=== PATIENT | male | born 1930 | race Caucasian/White ===

== ENCOUNTER → 2016-11-15 | Outpatient (CLI) | payer BC ==
[~2016-11-15] MED LIST: ACET650T92 PO; ACET650T97 PO; ASPI81TA25 PO; CLTP PO; CMD/25 PO; CMD5 PO; ENAL5TAB83 PO; FURO-85 PO; LEVO75TA5 PO; LUTE20TA PO; MULT-190 PO; MULT-506 PO; POLYSOL4 OP; RIVA1.5T PO; SPIR25TA PO; TRAM-10 PO
[2016-11-15 16:09] LABS: BLOOD UREA NITROGEN 29 mg/dl (7-18); BUN/CREATININE RATIO 22.4 (10-20); CARBON DIOXIDE 26 mmol/L (21-32); CHLORIDE 97 mmol/L (98-107); GLUCOSE 84 mg/dl (70-99); POTASSIUM 4.8 mmol/L (3.5-5.1); SODIUM 132 mmol/L (136-145)
== END | disposition home or self-care (01) ==
LOC: C.LAB 14:43
PROVIDERS: ATTEND Internal Medicine Geriatric Medicine
DX: E03.9 Hypothyroidism, unspecified (principal); E87.1 Hypo-osmolality and hyponatremia; I42.9 Cardiomyopathy, unspecified

== ENCOUNTER → 2017-01-19 | Outpatient (CLI) | payer BC ==
[2017-01-19 13:25] LABS: BASO % 1.5 %; COMPLETE YES; EOS % 4.5 %; HEMATOCRIT 40.6 % (42-52); IG% 0.1 %; LYMPH % 16.7 %; LYMPH ABS # 1.12 K/uL (1.2-3.4); MEAN CELL VOLUME 99.3 fL (80-100); MEAN CORPUSCULAR HGB CONC 35.2 g/dl (32-36); MEAN PLATELET VOLUME 9.2 fL (7.4-10.4); MONO % 12.9 %; NEUT % 64.3 %; PLATELET COUNT 242 K/uL (130-400); RED BLOOD COUNT 4.09 M/uL (4.7-6.1); WHITE BLOOD COUNT 6.72 K/uL (4.8-10.8)
[2017-01-19 14:00] LABS: BLOOD UREA NITROGEN 27 mg/dl (7-18); BUN/CREATININE RATIO 22.8 (10-20); CALCIUM 9.3 mg/dl (8.5-10.1); CARBON DIOXIDE 27 mmol/L (21-32); CHLORIDE 97 mmol/L (98-107); GLUCOSE 41 mg/dl (70-99); POTASSIUM 4.2 mmol/L (3.5-5.1); SODIUM 131 mmol/L (136-145)
== END | disposition home or self-care (01) ==
LOC: C.LABBC 11:58
PROVIDERS: ATTEND Internal Medicine Geriatric Medicine
DX: D64.9 Anemia, unspecified (principal); E87.1 Hypo-osmolality and hyponatremia; E03.9 Hypothyroidism, unspecified

== ENCOUNTER → 2017-01-20 | Outpatient (CLI) | payer BC | END | disposition home or self-care (01) | LOC: C.LAB 11:42 | PROVIDERS: ATTEND Internal Medicine Geriatric Medicine | DX: E16.2 Hypoglycemia, unspecified (principal) ==

== ENCOUNTER → 2017-01-21 | Outpatient (CLI) | payer BC | END | disposition home or self-care (01) | LOC: C.LAB 08:59 | PROVIDERS: ATTEND Internal Medicine Geriatric Medicine | DX: E16.2 Hypoglycemia, unspecified (principal) ==

== ENCOUNTER → 2017-04-27 | Outpatient (CLI) | payer BC ==
[2017-04-27 12:17] LABS: BASO % 1.3 %; BASO ABS # 0.07 K/uL (0-0.2); COMPLETE YES; EOS % 7.8 %; HEMATOCRIT 42.1 % (42-52); IG% 0.2 %; LYMPH % 18.7 %; LYMPH ABS # 0.98 K/uL (1.2-3.4); MEAN CELL VOLUME 101.7 fL (80-100); MEAN CORPUSCULAR HEMOGLOBIN 33.8 pg (25-34); MEAN CORPUSCULAR HGB CONC 33.3 g/dl (32-36); MEAN PLATELET VOLUME 9.3 fL (7.4-10.4); MONO % 10.3 %; NEUT % 61.7 %; PLATELET COUNT 210 K/uL (130-400); RED BLOOD COUNT 4.14 M/uL (4.7-6.1); WHITE BLOOD COUNT 5.24 K/uL (4.8-10.8)
[2017-04-27 12:42] LABS: BLOOD UREA NITROGEN 22 mg/dl (7-18); BUN/CREATININE RATIO 18.3 (10-20); CALCIUM 8.8 mg/dl (8.5-10.1); CARBON DIOXIDE 24 mmol/L (21-32); CHLORIDE 100 mmol/L (98-107); GLUCOSE 84 mg/dl (70-99); POTASSIUM 4.4 mmol/L (3.5-5.1); SODIUM 131 mmol/L (136-145)
== END | disposition home or self-care (01) ==
LOC: C.LAB 11:36
PROVIDERS: ATTEND Internal Medicine Geriatric Medicine
DX: I48.91 Unspecified atrial fibrillation (principal); C61 Malignant neoplasm of prostate; I49.5 Sick sinus syndrome; E87.1 Hypo-osmolality and hyponatremia; E03.9 Hypothyroidism, unspecified; Z79.01 Long term (current) use of anticoagulants

== ENCOUNTER 2017-07-05 15:15 | Inpatient (IN) | payer BC, OTHER ==
[~2017-07-05] VITALS: Ht 182.9 cm; Wt 59.0 kg
[~2017-07-05 15:15] MED LIST changes: -ACET650T97 PO; -FURO-85 PO; -LEVO75TA5 PO; -POLYSOL4 OP; -RIVA1.5T PO; -SPIR25TA PO
[2017-07-05] MEDS ORDERED: SODIUM CHLORIDE 0.9% 1000ML 1,000 ML IV STA (15:44)
[2017-07-05] MEDS ORDERED: OPTIRAY 320 IV PRN (16:00)
[2017-07-05] MEDS ORDERED: POLYSOL4 OP (16:08)
[2017-07-05] MEDS ORDERED: RIVA1.5T PO (16:08)
[2017-07-05] MEDS ORDERED: SPIR25TA PO (16:08)
[2017-07-05] MEDS ORDERED: ACET650T97 PO (16:08)
[2017-07-05] MEDS ORDERED: LEVO75TA5 PO (16:08)
[2017-07-05] MEDS ORDERED: FURO-85 PO (16:08)
[2017-07-05 16:40] LABS: BASO % 0.2 %; BASO ABS # 0.01 K/uL (0-0.2); COMPLETE YES; EOS % 0.9 %; HEMATOCRIT 44.7 % (42-52); IG% 0.3 %; LYMPH % 10.5 %; MEAN CORPUSCULAR HEMOGLOBIN 34.9 pg (25-34); MEAN CORPUSCULAR HGB CONC 34.9 g/dl (32-36); MEAN PLATELET VOLUME 9.5 fL (7.4-10.4); MONO % 9.5 %; NEUT % 78.6 %; PLATELET COUNT 246 K/uL (130-400); RED BLOOD COUNT 4.47 M/uL (4.7-6.1); WHITE BLOOD COUNT 6.66 K/uL (4.8-10.8)
[2017-07-05 17:03] LABS: BUN/CREATININE RATIO 16.5 (10-20); CALCIUM 9.2 mg/dl (8.5-10.1); CREATININE 1.3 mg/dl (0.60-1.40); POTASSIUM 3.2 mmol/L (3.5-5.1)
--- NOTE | 2017-07-05 18:00 | DIAGNOSTIC IMAGING REPORT ---
ABD/PELVIS IV CONTRAST ONLY CT DOSE: 394.35 mGy.cm HISTORY: Pain lower abd pain TECHNIQUE: Multiaxial CT images of the abdomen and pelvis were performed following the use of intravenous contrast. A dose lowering technique was utilized adhering to the principles of ALARA. COMPARISON STUDY: 08/29/2000 FINDINGS: Trace pleural fluid left lung base. Liver enhances uniformly. Stomach is relatively collapsed. Dilatation of the transverse and to a lesser extent a sending colon. Maximum diameter of the transverse colon is 9.3 cm. No significant distention of the distal descending colon. This raises the distinct possibility of a nonvisualized obstructing lesion. No oral contrast was administered. Spleen is unremarkable. Moderate fatty replacement of pancreas. Mild bladder distention. No significant free fluid within the pelvic cul-de-sac. Postoperative changes involving the lumbar spine. IMPRESSION: 1. Considerable distention of the transverse and to lesser extent a sending colon. 2. This raises the possibility of a descending colonic obstructing lesion with colonoscopy recommended. 3. Small left effusion. The above report was generated using voice recognition software. It may contain grammatical, syntax or spelling errors. Electronically signed by: Ryan Gibbs M.D. 07/05/2017 5:59 PM Dictated Date/Time: 07/05/2017 5:54 PM
--- NOTE | 2017-07-05 18:10 | DIAGNOSTIC IMAGING REPORT ---
CT OF THE LUMBAR SPINE CLINICAL HISTORY: Lower back pain. COMPARISON STUDY: Lumbar spine MRI October 13, 2009. FINDINGS: The CT of the abdomen and pelvis will be reported separately. For purposes of numbering on this exam, the L5-S1 disc space is assigned to axial image 684 of 832. There are post surgical findings consistent with a multilevel posterior decompression with bilateral pedicle screw fusion from L2 through L5. L2-L3, L3-L4 and L4-L5 discectomies with interbody spacer placement are noted. There is moderate levoscoliosis of the lumbar spine. No acute lumbar spine fractures identified. Central canal and neural foramen are suboptimally assessed by CT. Paravertebral soft tissues are unremarkable. The hardware is intact. There is multilevel disc space narrowing with osteophytosis and vacuum disc phenomenon. IMPRESSION: 1. No acute lumbar spine fracture or subluxation. 2. Status post posterior decompression with L2-L5 bilateral pedicle screw fusion and multilevel discectomy, as detailed above. 3. Moderate levoscoliosis of the lumbar spine. 4. Suboptimal evaluation of the central canal and neural foramen given CT technique. Electronically signed by: Roque Aguilar M.D. 07/05/2017 6:08 PM Dictated Date/Time: 07/05/2017 5:55 PM
--- NOTE | 2017-07-05 18:34 | History and Physical ---
History & Physical Date & Time of Service: Jul 05, 2017 at 18:28 Chief Complaint: Not Eating/Drinking Possibly Dehydrated Primary Care Physician: Brenton Bokoer M.D. History of Present Illness Source: patient This ia a 87 yo M with PMHx of chronic systolic CHF with EF of 35-40% in Aug 2016, cardiomyopathy, sick sinus syndrome s/p cardiac pacemaker insertion on chronic anticoagulation, prostate carcinoma, CAD, atrial septal aneurysm, hx of TIA/CVA, hypothyroidism, osteoarthritis presenting with low back pain/poor oral intake and found to have large colonic distension of the transverse and descending colon. The patient is a poor historian, and no other family members are present at bedside. He reports having low back pain which is chronic, although this pain seems to be much worse than that. He cannot tell me when this pain started. He has not been eating well or drinking well for several days. Patient has not had a bowel movement in several days, but reports that they're normally soft and formed. He denies any nausea or vomiting. The patient's stomach feels distended and hurts when someone pushes on it. He lives at home with his . Pt has required using his walker for ambulation assistance due to the worsening low back pain. Past Medical/Surgical History Medical Problems: (1) Atrial fibrillation Status: Chronic (2) Bradycardia Status: Chronic (3) Implantation of cardiac pacemaker Status: Resolved chronic systolic CHF with EF of 35-40% in Aug 2016 cardiomyopathy sick sinus syndrome s/p cardiac pacemaker insertion chronic anticoagulation prostate carcinoma CAD atrial septal aneurysm hx of TIA/CVA Hypothyroidism Osteoarthritis Surgical Hx: Dual chamber Medronic pacemaker insertion 2010 Cararact surgery [facility] surgery of head Social History Smoking Status: Former Smoker Smokeless Tobacco Use: No Alcohol Use: none Marital Status: Housing status: lives with family Occupational Status: retired Immunizations History of Influenza Vaccine: N/A History of Tetanus Vaccine?: Yes History of Pneumococcal: Yes History of Hepatitis B Vaccine: No Multi-Drug Resistant Organisms History of MDRO: No Allergies Coded Allergies: No Known Allergies (Verified , `, 07/05/17) Home Medications Scheduled Acetaminophen (Tylenol 8 Hour Arthritis), 650 MG PO BID Aspirin (Aspir-Low), 81 MG PO QAM Furosemide (Lasix), 20 MG PO DAILY Levothyroxine Sodium (Levothyroxine Sodium), 75 MCG PO QAM Ocuvite Preservision (Ocuvite Preservision), 1 TAB PO BID Rivaroxaban (Xarelto), 15 MG PO QAM Spironolactone (Aldactone), 25 MG PO DAILY Scheduled PRN Polyethylene Glycol-Propylene (Systane), 1 DROPS OP UD PRN for Review of Systems Constitutional: No fever, sweats or chills Eyes: No diplopia, no worsening or blurred vision ENT: normal hearing, no trouble swallowing Respiratory: No cough, sputum, dyspnea at rest or on exertion Cardiovascular: No chest pain, tightness or palpitations Abdomen: See HPI. Musculoskeletal: No joint pain, calf pain, +chronic lower leg swelling but none currently Neurologic: +using walker recently due to back pain, No weakness, numbness/ tingling, or balance problems Psychiatric: No anxiety or depression Skin: No rash or itch Physical Exam Vital Signs Date Time Temp Pulse Resp B/P (MAP) Pulse Ox O2 Delivery O2 Flow Rate FiO2 07/05/17 16:13 60 20 129/83 97 Room Air 07/05/17 15:23 36.4 76 20 112/76 95 Room Air General: awake, alert, + mild distress Head: Normocephalic, atraumatic ENT: PERRL, EOMI, + left scleral injection and pustular exudate, + right eye crusting, no pharyngeal exudate, mucous membranes dry, + hard of hearing Chest: Clear to auscultation, on room air, no adventitious breath sounds Cardiac: + pacemaker left upper chest wall, RRR, no murmur, no JVD, normal peripheral pulses, good capillary refill, no peripheral edema Abdominal: Hypoactive bowel sounds with tinkling over mid abdominal distension, +hard, nontender to palpation. Extremities: + Chronic venous stasis changes, no peripheral edema or erythema, calfs nontender to palpation Psych: Normal mood and affect Neuro: AAO x 3, strength intact bilaterally and related 5/5, no motor deficits, speech is clear, no peripheral sensory deficits Diagnostics Laboratory Results Results Past 24 Hours Test 07/05/17 16:10 Range/Units White Blood Count 6.66 4.8-10.8 K/uL Red Blood Count 4.47 4.7-6.1 M/uL Hemoglobin 15.6 14.0-18.0 g/dL Hematocrit 44.7 42-52 % Mean Corpuscular Volume 100.0 80-100 fL Mean Corpuscular Hemoglobin 34.9 25-34 pg Mean Corpuscular Hemoglobin Concent 34.9 32-36 g/dl Platelet Count 246 130-400 K/uL Mean Platelet Volume 9.5 7.4-10.4 fL Neutrophils (%) (Auto) 78.6 % Lymphocytes (%) (Auto) 10.5 % Monocytes (%) (Auto) 9.5 % Eosinophils (%) (Auto) 0.9 % Basophils (%) (Auto) 0.2 % Neutrophils # (Auto) 5.24 1.4-6.5 K/uL Lymphocytes # (Auto) 0.70 1.2-3.4 K/uL Monocytes # (Auto) 0.63 0.11-0.59 K/uL Eosinophils # (Auto) 0.06 0-0.5 K/uL Basophils # (Auto) 0.01 0-0.2 K/uL RDW Standard Deviation 50.0 36.4-46.3 fL RDW Coefficient of Variation 13.7 11.5-14.5 % Immature Granulocyte % (Auto) 0.3 % Immature Granulocyte # (Auto) 0.02 0.00-0.02 K/uL Sodium Level 131 136-145 mmol/L Potassium Level 3.2 3.5-5.1 mmol/L Chloride Level 96 98-107 mmol/L Carbon Dioxide Level 27 21-32 mmol/L Anion Gap 8.0 3-11 mmol/L Blood Urea Nitrogen 22 7-18 mg/dl Creatinine 1.30 0.60-1.40 mg/dl Est Creatinine Clear Calc Drug Dose 31.6 ml/min Estimated GFR () 56.1 Estimated GFR (Non- 48.4 BUN/Creatinine Ratio 16.5 10-20 Random Glucose 107 70-99 mg/dl Calcium Level 9.2 8.5-10.1 mg/dl Total Bilirubin 1.7 0.2-1 mg/dl Direct Bilirubin 0.5 0-0.2 mg/dl Aspartate Amino Transf (AST/SGOT) 29 15-37 U/L Alanine Aminotransferase (ALT/SGPT) 29 12-78 U/L Alkaline Phosphatase 67 45-117 U/L Total Protein 7.1 6.4-8.2 gm/dl Albumin 3.4 3.4-5.0 gm/dl Lipase 272 73-393 U/L Diagnostic Radiology ABD/PELVIS IV CONTRAST ONLY CT DOSE: 394.35 mGy.cm HISTORY: Pain lower abd pain TECHNIQUE: Multiaxial CT images of the abdomen and pelvis were performed following the use of intravenous contrast. A dose lowering technique was utilized adhering to the principles of ALARA. COMPARISON STUDY: 08/29/2000 FINDINGS: Trace pleural fluid left lung base. Liver enhances uniformly. Stomach is relatively collapsed. Dilatation of the transverse and to a lesser extent a sending colon. Maximum diameter of the transverse colon is 9.3 cm. No significant distention of the distal descending colon. This raises the distinct possibility of a nonvisualized obstructing lesion. No oral contrast was administered. Spleen is unremarkable. Moderate fatty replacement of pancreas. Mild bladder distention. No significant free fluid within the pelvic cul-de-sac. Postoperative changes involving the lumbar spine. IMPRESSION: 1. Considerable distention of the transverse and to lesser extent a sending colon. 2. This raises the possibility of a descending colonic obstructing lesion with colonoscopy recommended. 3. Small left effusion. The above report was generated using voice recognition software. It may contain grammatical, syntax or spelling errors. Electronically signed by: Ryan Gibbs M.D. 07/05/2017 5:59 PM Dictated Date/Time: 07/05/2017 5:54 PM The status of this report is Signed. CT OF THE LUMBAR SPINE CLINICAL HISTORY: Lower back pain. COMPARISON STUDY: Lumbar spine MRI October 13, 2009. FINDINGS: The CT of the abdomen and pelvis will be reported separately. For purposes of numbering on this exam, the L5-S1 disc space is assigned to axial image 684 of 832. There are post surgical findings consistent with a multilevel posterior decompression with bilateral pedicle screw fusion from L2 through L5. L2-L3, L3-L4 and L4-L5 discectomies with interbody spacer placement are noted. There is moderate levoscoliosis of the lumbar spine. No acute lumbar spine fractures identified. Central canal and neural foramen are suboptimally assessed by CT. Paravertebral soft tissues are unremarkable. The hardware is intact. There is multilevel disc space narrowing with osteophytosis and vacuum disc phenomenon. IMPRESSION: 1. No acute lumbar spine fracture or subluxation. 2. Status post posterior decompression with L2-L5 bilateral pedicle screw fusion and multilevel discectomy, as detailed above. 3. Moderate levoscoliosis of the lumbar spine. 4. Suboptimal evaluation of the central canal and neural foramen given CT technique. Electronically signed by: Roque Aguilar M.D. 07/05/2017 6:08 PM Dictated Date/Time: 07/05/2017 5:55 PM The status of this report is Signed. Impression Assessment and Plan This ia a 87 yo M with PMHx of chronic systolic CHF with EF of 35-40% in Aug 2016, cardiomyopathy, sick sinus syndrome s/p cardiac pacemaker insertion on chronic anticoagulation, prostate carcinoma, CAD, atrial septal aneurysm, hx of TIA/CVA hypothyroidism, osteoarthritis presenting with poor oral intake and found to have large colonic distension of the transverse and descending colon. Colonic distention of the transverse and descending colon - Admit patient to telemetry - We will order a Dulcolax suppository now to see if this helps to alleviate colonic distention, continue bid prn - GI consulted for possible colonoscopy tomorrow, keep the patient nothing by mouth - Patient received 1 L NSS in the ER, Will start maintenance fluids with NSS at 75 mL/hr x 10 hours. Caution for fluid overload as the patient has CHF with poor EF. Chronic systolic CHF Cardiomyopathy Sick sinus syndrome s/p pacemaker insertion Chronic anticoagulation - Most recent Echo in August 2016 showing LVEF=35-40%, patient follows with Dr. Amos as an outpatient - S/d dual-chamber [employer] pacemaker - We will hold Lasix 20 mg Po daily and spironolactone 25 mg daily for now with IVFs in place. - Continue Xarelto 15 mg QPM - Continue ASA 81 mg every other day Prostate carcinoma - Resolved, Stable Hypothyroidism - Levothyroxine 75 g daily DVT prophylaxis: Xarelto CODE STATUS: DO NOT RESUSCITATE Disposition: Patient from home, lives with , CM to assist with discharge planning Level of Care Telemetry Resuscitation Status DO NOT RESUSCITATE VTE Prophylaxis Risk Level: Very Low Given or contraindicated: Other Anticoagulation, T.E.D. Stockings, SCD's
[2017-07-05 18:57] LABS: URINE APPEARANCE CLEAR (CLEAR); URINE BILIRUBIN NEG (NEG); URINE COLOR YELLOW; URINE EPITHELIAL CELL AUTO 0-5 /lpf (0-5); URINE NITRITE NEG (NEG); URINE PH 6.5 (4.5-7.5); URINE SPECIFIC GRAVITY 1.023 (1.000-1.030); UROBILINOGEN NEG (NEG); ZZURINE CULT IF INDIC CATH NO
[2017-07-05] MEDS ORDERED: BISACODYL 10 MG SUPP PR STA (19:05)
[2017-07-05] MEDS ORDERED: SODIUM CHLORIDE 0.9% 1000ML 1,000 ML IV SCH (19:05)
[2017-07-05] MEDS ORDERED: POTASSIUM CHLR 20 MEQ / WTR 40 MEQ in PREMIXED WATER 100 ML IV STA (19:12)
[2017-07-05] MEDS ORDERED: BISACODYL 10 MG SUPP PR PRN (19:15)
[2017-07-05] MEDS ORDERED: ONDANSETRON INJ 2 MG/ML 2 ML VIAL IV PRN (19:15)
[2017-07-05] MEDS ORDERED: ACETAMINOPHEN 325 MG TAB PO PRN (19:15)
[2017-07-05] MEDS ORDERED: ARTIFICIAL TEARS OP SOLN OP PRN ×2 (19:15)
[2017-07-05 19:17] LABS: MANUAL MICROSCOPIC REQUIRED? NO; REVIEW REQ? NO
--- NOTE | 2017-07-05 20:30 | EMERGENCY ROOM VISIT NOTE ---
History Report prepared by Babak: Dick Ayala Under the Supervision of: Dr. Sammy Sheriff D.O. First contact with patient: 15:26 Chief Complaint: DEHYDRATION Stated Complaint: NOT EATING/DRINKING POSSIBLY DEHYDRATED Nursing Triage Summary: patient to ed via triage, per , patient "has not been acting like himself, not eating or drinking, sleeping all the time. He has chronic back pain but he says its worse." History of Present Illness The patient is an 87 year old male who presents to the Emergency Room with complaints of constant back pain and dehydration for the past 6 days. Additionally, the patient has not been eating or drinking anything and is dehydrated. Per the patients , the patient has had a small amount of soup and fruit juice. The patient states that he gets a little nauseous while he is eating. Per the , the patient has been using a walker recently which is unusual. The patient has chronic back pain, though this pain is more intense than usual. Pt denies headache, change in vision, difficulty swallowing, fevers , abdominal pain, chest pain, shortness of breath, vomiting, diarrhea, pain with urination, and melena. Source of History: patient, spouse/significant other Onset: 6 days ago Position: back, other (global) Quality: other Timing: constant Associated Symptoms: + nausea Review of Systems Pt denies headache, change in vision, fevers, chest pain, shortness of breath, nausea, vomiting, diarrhea, pain with urination, and melena. Past Medical & Surgical Medical Problems: (1) Atrial fibrillation (2) Bradycardia (3) Colonic obstruction (4) Implantation of cardiac pacemaker Social History Smoking Status: Never Smoker Marital Status: Housing Status: lives with friends Current/Historical Medications Scheduled Acetaminophen (Tylenol 8 Hour Arthritis), 650 MG PO BID Aspirin (Aspir-Low), 81 MG PO QAM Furosemide (Lasix), 20 MG PO DAILY Levothyroxine Sodium (Levothyroxine Sodium), 75 MCG PO QAM Ocuvite Preservision (Ocuvite Preservision), 1 TAB PO BID Rivaroxaban (Xarelto), 15 MG PO QAM Spironolactone (Aldactone), 25 MG PO DAILY Scheduled PRN Polyethylene Glycol-Propylene (Systane), 1 DROPS OP UD PRN for Allergies Coded Allergies: No Known Allergies (Verified , `, 07/05/17) Physical Exam Vital Signs Date Time Temp Pulse Resp B/P (MAP) Pulse Ox O2 Delivery O2 Flow Rate FiO2 07/05/17 18:00 87 20 127/73 98 Room Air 07/05/17 17:00 88 20 122/76 98 Room Air 07/05/17 16:13 60 20 129/83 97 Room Air 07/05/17 15:23 36.4 76 20 112/76 95 Room Air Physical Exam GENERAL: Cachectic, malnourished, and heard of hearing. EYE EXAM: normal conjunctiva, PERRL and EOM's intact OROPHARYNX: no exudate, no erythema, lips, buccal mucosa, and tongue normal and mucous membranes are moist NECK: supple, no nuchal rigidity, no adenopathy, non-tender CHEST: Pacemaker in place LUNGS: Clear to auscultation. Normal chest wall mechanics HEART: Mild systolic ejection murmur, S1 normal and S2 normal ABDOMEN: abdomen soft, non-tender, normo-active bowel sounds, no masses, no rebound or guarding. BACK: Back is symmetrical on inspection and there is no deformity, no midline tenderness, no CVA tenderness. SKIN: no rashes and no bruising UPPER EXTREMITIES: upper extremities are grossly normal. LOWER EXTREMITIES: No pitting edema. NEURO EXAM: Normal sensorium, cranial nerves II-XII intact, normal speech, no weakness of arms, no weakness of legs. Sensation intact. Medical Decision & Procedures ER Provider Diagnostic Interpretation: Radiology results as stated below per my review and the radiologist's interpretation: CT OF THE LUMBAR SPINE CLINICAL HISTORY: Lower back pain. COMPARISON STUDY: Lumbar spine MRI October 13, 2009. FINDINGS: The CT of the abdomen and pelvis will be reported separately. For purposes of numbering on this exam, the L5-S1 disc space is assigned to axial image 684 of 832. There are post surgical findings consistent with a multilevel posterior decompression with bilateral pedicle screw fusion from L2 through L5. L2-L3, L3-L4 and L4-L5 discectomies with interbody spacer placement are noted. There is moderate levoscoliosis of the lumbar spine. No acute lumbar spine fractures identified. Central canal and neural foramen are suboptimally assessed by CT. Paravertebral soft tissues are unremarkable. The hardware is intact. There is multilevel disc space narrowing with osteophytosis and vacuum disc phenomenon. IMPRESSION: 1. No acute lumbar spine fracture or subluxation. 2. Status post posterior decompression with L2-L5 bilateral pedicle screw fusion and multilevel discectomy, as detailed above. 3. Moderate levoscoliosis of the lumbar spine. 4. Suboptimal evaluation of the central canal and neural foramen given CT technique. Electronically signed by: Roque Aguilar M.D. 07/05/2017 6:08 PM Dictated Date/Time: 07/05/2017 5:55 PM ABD/PELVIS IV CONTRAST ONLY CT DOSE: 394.35 mGy.cm HISTORY: Pain lower abd pain TECHNIQUE: Multiaxial CT images of the abdomen and pelvis were performed following the use of intravenous contrast. A dose lowering technique was utilized adhering to the principles of ALARA. COMPARISON STUDY: 08/29/2000 FINDINGS: Trace pleural fluid left lung base. Liver enhances uniformly. Stomach is relatively collapsed. Dilatation of the transverse and to a lesser extent a sending colon. Maximum diameter of the transverse colon is 9.3 cm. No significant distention of the distal descending colon. This raises the distinct possibility of a nonvisualized obstructing lesion. No oral contrast was administered. Spleen is unremarkable. Moderate fatty replacement of pancreas. Mild bladder distention. No significant free fluid within the pelvic cul-de-sac. Postoperative changes involving the lumbar spine. IMPRESSION: 1. Considerable distention of the transverse and to lesser extent a sending colon. 2. This raises the possibility of a descending colonic obstructing lesion with colonoscopy recommended. 3. Small left effusion. The above report was generated using voice recognition software. It may contain grammatical, syntax or spelling errors. Electronically signed by: Ryan Gibbs M.D. 07/05/2017 5:59 PM Dictated Date/Time: 07/05/2017 5:54 PM Laboratory Results 07/05/17 16:10 Red Blood Count 4.47, Mean Corpuscular Volume 100.0, Mean Corpuscular Hemoglobin 34.9, Mean Corpuscular Hemoglobin Concent 34.9, Mean Platelet Volume 9.5, Neutrophils (%) (Auto) 78.6, Lymphocytes (%) (Auto) 10.5, Monocytes (%) ( Auto) 9.5, Eosinophils (%) (Auto) 0.9, Basophils (%) (Auto) 0.2, Neutrophils # ( Auto) 5.24, Lymphocytes # (Auto) 0.70, Monocytes # (Auto) 0.63, Eosinophils # ( Auto) 0.06, Basophils # (Auto) 0.01 07/05/17 16:10 Test 07/05/17 16:10 07/05/17 18:30 White Blood Count 6.66 K/uL (4.8-10.8) Red Blood Count 4.47 M/uL (4.7-6.1) Hemoglobin 15.6 g/dL (14.0-18.0) Hematocrit 44.7 % (42-52) Mean Corpuscular Volume 100.0 fL (80-100) Mean Corpuscular Hemoglobin 34.9 pg (25-34) Mean Corpuscular Hemoglobin Concent 34.9 g/dl (32-36) Platelet Count 246 K/uL (130-400) Mean Platelet Volume 9.5 fL (7.4-10.4) Neutrophils (%) (Auto) 78.6 % Lymphocytes (%) (Auto) 10.5 % Monocytes (%) (Auto) 9.5 % Eosinophils (%) (Auto) 0.9 % Basophils (%) (Auto) 0.2 % Neutrophils # (Auto) 5.24 K/uL (1.4-6.5) Lymphocytes # (Auto) 0.70 K/uL (1.2-3.4) Monocytes # (Auto) 0.63 K/uL (0.11-0.59) Eosinophils # (Auto) 0.06 K/uL (0-0.5) Basophils # (Auto) 0.01 K/uL (0-0.2) RDW Standard Deviation 50.0 fL (36.4-46.3) RDW Coefficient of Variation 13.7 % (11.5-14.5) Immature Granulocyte % (Auto) 0.3 % Immature Granulocyte # (Auto) 0.02 K/uL (0.00-0.02) Anion Gap 8.0 mmol/L (3-11) Est Creatinine Clear Calc Drug Dose 31.6 ml/min Estimated GFR () 56.1 Estimated GFR (Non- 48.4 BUN/Creatinine Ratio 16.5 (10-20) Calcium Level 9.2 mg/dl (8.5-10.1) Total Bilirubin 1.7 mg/dl (0.2-1) Direct Bilirubin 0.5 mg/dl (0-0.2) Aspartate Amino Transf (AST/SGOT) 29 U/L (15-37) Alanine Aminotransferase (ALT/SGPT) 29 U/L (12-78) Alkaline Phosphatase 67 U/L (45-117) Total Protein 7.1 gm/dl (6.4-8.2) Albumin 3.4 gm/dl (3.4-5.0) Lipase 272 U/L (73-393) Urine Color YELLOW Urine Appearance CLEAR (CLEAR) Urine pH 6.5 (4.5-7.5) Urine Specific [place] 1.023 (1.000-1.030) Urine Protein NEG (NEG) Urine Glucose (UA) NEG (NEG) Urine Ketones NEG (NEG) Urine Occult Blood NEG (NEG) Urine Nitrite NEG (NEG) Urine Bilirubin NEG (NEG) Urine Urobilinogen NEG (NEG) Urine Leukocyte Esterase NEG (NEG) Urine WBC (Auto) 0 /hpf (0-5) Urine RBC (Auto) 0-4 /hpf (0-4) Urine Hyaline Casts (Auto) 1-5 /lpf (0-5) Urine Epithelial Cells (Auto) 0-5 /lpf (0-5) Urine Bacteria (Auto) NEG (NEG) Laboratory results per my review. Medications Administered Medications (Trade) Dose Ordered Sig/Kimberly Route Start Time Stop Time Status Last Admin Dose Admin Sodium Chloride 1,000 ml @ 999 mls/hr Q1H1M STAT IV 07/05/17 15:44 07/05/17 16:44 DC 07/05/17 16:11 999 MLS/HR ED Course ED COURSE: Vital signs were reviewed and showed normal vitals The patients medical record was reviewed The above diagnostic studies were performed and reviewed. ED treatments and interventions as stated above. 1526: The patient was evaluated in room B3. A complete history and physical examination was performed. 1757: Upon reevaluation, the patient is resting.I discussed my findings with the patient and he understands and agrees with the treatment plan. Based on the patients age, coexisting illnesses, exam and lab findings the decision to treat as an inpatient was made. The patient remained stable while under my care. The patient will be evaluated for further management. 1824: I reviewed the patient's case with Dr. Albarran. He will evaluate the patient for further management. Medical Decision Differential Diagnosis includes but is not limited to dehydration, stroke, anemia, hypoglycemia, hyponatremia, hypernatremia, urinary tract infection, pneumonia, bronchitis, sepsis, gastroenteritis, additional abdominal pathology, metabolic abnormalities and infections. Patient is an 87-year-old male that presents to ER following feeling generally weak, not eating and drinking. Patient was referred in by PCP. CBC was unremarkable. BMP shows a mild hyponatremia and hypo-kalemia. T bili was slightly elevated. Patient was given IV fluids. CT abdomen and pelvis shows large distended colon. They question a possible mass. CT lumbar spine was unremarkable for any acute pathology. Patient has no focal weakness of his legs to suggest cauda equina. With this markedly distention of the colon and have not been able to eat I discussed the case with internal medicine for admission and for evaluation by GI and general surgery. Medication Reconcilliation Current Medication List: was personally reviewed by me Blood Pressure Screening Patient's blood pressure: Normal blood pressure Consults Time Called: 1809 Consulting Physician: Dr. Albarran Returned Call: [phone] I reviewed the patient's case with Dr. Albarran. He will evaluate the patient for further management. Impression Primary Impression: Colonic obstruction Additional Impressions: Failure to thrive Implantation of cardiac pacemaker Hypokalemia Scribe Attestation The scribe's documentation has been prepared under my direction and personally reviewed by me in its entirety. I confirm that the note above accurately reflects all work, treatment, procedures, and medical decision making performed by me. Departure Information Dispostion Being Evaluated By Hospitalist Referrals Brenton Booker M.D. (PCP) Patient Instructions My [facility] Problem Qualifiers Additional Impressions: Failure to thrive Failure to thrive age range: in adult Qualified Codes: R62.7 - Adult failure to thrive
[2017-07-05 20:33] VITALS: BP 120/81; PULSE 61; TEMP 36.8; O2SAT 94; Ht 182.9 cm; Wt 59.0 kg
[2017-07-05] MEDS: POTASSIUM CHLR 10MEQ / WTR IV SCH ×3 (21:07→23:35)
[2017-07-05] MEDS: CIPROFLOXACIN HCL 0.3% OP SOLN 2.5 ML BTL OP SCH (21:50)
[2017-07-06] VITALS (10 sets, daily range): BP systolic 103–136; BP diastolic 68–88; PULSE 58–80; TEMP 36.3–37.2; O2SAT 91–95
[2017-07-06] MEDS: POTASSIUM CHLR 10MEQ / WTR IV SCH (00:52)
[2017-07-06] MEDS: LEVOTHYROXINE 75 MCG TAB PO SCH (05:40)
[2017-07-06 07:45] LABS: BASO % 0.1 %; BASO ABS # 0.01 K/uL (0-0.2); COMPLETE YES; EOS % 0.1 %; HEMATOCRIT 41.5 % (42-52); IG% 0.2 %; LYMPH % 6.1 %; LYMPH ABS # 0.61 K/uL (1.2-3.4); MEAN CELL VOLUME 99.5 fL (80-100); MEAN CORPUSCULAR HEMOGLOBIN 35.3 pg (25-34); MEAN CORPUSCULAR HGB CONC 35.4 g/dl (32-36); MEAN PLATELET VOLUME 9.5 fL (7.4-10.4); MONO % 5.5 %; PLATELET COUNT 204 K/uL (130-400); RED BLOOD COUNT 4.17 M/uL (4.7-6.1); WHITE BLOOD COUNT 10.05 K/uL (4.8-10.8)
[2017-07-06 08:20] LABS: BUN/CREATININE RATIO 18.5 (10-20); CALCIUM 8.7 mg/dl (8.5-10.1); POTASSIUM 3.1 mmol/L (3.5-5.1)
[2017-07-06] MEDS ORDERED: POTASSIUM CHLORIDE 20 MEQ TABCR PO ONE (09:30)
[2017-07-06] MEDS: ASPIRIN 81 MG ECTAB PO SCH (10:16)
[2017-07-06] MEDS: CEROVITE ADV FORMULA TAB PO SCH (10:16)
[2017-07-06] MEDS: CIPROFLOXACIN HCL 0.3% OP SOLN 2.5 ML BTL OP SCH ×2 (10:16→20:58)
[2017-07-06] MEDS: POTASSIUM CHLR 10 MEQ / WTR 10 MEQ in PREMIXED WATER 100 ML IV SCH ×2 (10:17→12:05)
--- NOTE | 2017-07-06 10:19 | DIAGNOSTIC IMAGING REPORT ---
KUB CLINICAL HISTORY: 87 years-old Male presenting with re-eval abd distension. TECHNIQUE: Single supine view of the abdomen was obtained. COMPARISON: CT from 07/05/2017. FINDINGS: Marked gaseous distention of the sigmoid colon. No gas noted in the rectum. Diffuse gaseous distention of colon more proximally. No gross pneumoperitoneum. Splenic arterial calcifications may be present. Scoliosis and posterior lumbar fusion. Suggestion of osteopenia. Lung bases clear. IMPRESSION: 1. 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 This is better demonstrated on recent CT. Surgical consultation warranted. The report will be called/faxed according to standard departmental protocol. Electronically signed by: Meño Frost M.D. 07/06/2017 10:17 AM Dictated Date/Time: 07/06/2017 10:14 AM
--- NOTE | 2017-07-06 10:50 | Clinical Documentation Query ---
SANTO Alonso : CLINICAL DOCUMENTATION QUERY Patient is a 87 year old male presenting with decreased intake and colonic distention of the transverse and descending colon per CT scan. A non-visualized lesion was suggested with recommended colonoscopy. GI consultation pending. In the interim, however, laxatives were attempted. KUB this a.m. 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 This is better demonstrated on recent CT. Surgical consultation warranted". Please clarify as clinically appropriate as there appears to exist a dichotomy in diagnosis and treatment. In your clinical opinion is this patient being managed for: ( ) Volvulus with resultant colonic obstruction ( ) Constipation ( ) Not Agree ( ) Other explanation of clinical findings (Please Explain) ( ) Unable to determine (Please Define) ( ) Need to Discuss The medical record reflects the following clinical findings, treatment, and risk factors. Clinical Indicators: As above Treatment: IVF, serial radiology, laxatives Risk Factors: Age, inactivity, poor intake. Please clarify and document your clinical opinion in the progress notes and discharge summary. Terms such as "probable", "suspected", "likely", "questionable", "possible", or "still to be ruled out" are acceptable. IF IN AGREEMENT, YOU MUST DOCUMENT ABOVE DIAGNOSTIC STATEMENT IN DAILY PROGRESS NOTES AND DISCHARGE SUMMARY. This document is not part of the patient's record. Thank You, Hang Fang, MARIA ESTHER [phone]
[2017-07-06] MEDS ORDERED: HYDROmorphone INJ 0.5 MG/0.5 ML SYR IV PRN (12:15)
--- NOTE | 2017-07-06 13:17 | Gastrointestinal Consultation ---
Gastrointestinal Consultation Date of Consultation: Jul 06, 2017 Attending Physician: Hung Craig Consulting Physician: Gio Ortiz Reason for Consultation: Colonic obstruction, eval for possible colonoscopy History of Present Illness Patient is a 87 year old male who presented to ED w symptoms of lower back, abd pain, poor PO intake. He is currently confused, unable to provide ROS. History obtain from over the phone and chart review. At baseline he was alert, oriented, ambulatory with walker. Pt has issues w constipation, at home usually takes Savioke probiotics and generic stool softeners. said for the last 5 days, he's been c/o abd pain, back pain, also noticed him to not have BM for several days. he started to not eat/drink much. Upon eval in ED, he was noted to have abdominal distension, tender to palpation. Labs showed no leukocytosis, or anemia. UA normal. CMP showed hyponatremia 133, hypokalemia 3.1 , LFTs normal except mild Tbili elevation of 1.7. He had CT abd/pelvis w IV contrast only w findings of: Trace pleural fluid left lung base. Liver enhances uniformly. Stomach is relatively collapsed. Dilatation of the transverse and to a lesser extent ascending colon. Maximum diameter of the transverse colon is 9.3 cm. No significant distention of the distal descending colon. This raises the distinct possibility of a nonvisualized obstructing lesion. No oral contrast was administered. Spleen is unremarkable. Moderate fatty replacement of pancreas. Mild bladder distention. No significant free fluid within the pelvic cul-de-sac. Postoperative changes involving the lumbar spine. IMPRESSION: 1. Considerable distention of the transverse and to lesser extent ascending colon. 2. This raises the possibility of a descending colonic obstructing lesion with colonoscopy recommended. 3. Small left effusion. 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 Did have colonoscopy in [address] Oliveira which showed diverticulosis, and non specific colitis. Social History Smoking Status: Former Smoker Marital Status: Housing Status: lives with friends Occupation Status: retired Allergies Coded Allergies: No Known Allergies (Verified , `, 07/05/17) Current Medications Home Meds and Scripts Medications Dose Route/Sig Max Daily Dose Days Date Category Systane (Polyethylene Glycol-Propylene) 1 Tomeka Tomeka 1 Drops OP UD PRN 07/05/17 Reported Tylenol 8 Hour Arthritis (Acetaminophen) 650 Mg Tab 650 Mg PO BID 07/05/17 Reported Levothyroxine Sodium 75 Mcg Tab 75 Mcg PO QAM 07/05/17 Reported Aldactone (Spironolactone) 25 Mg Tab 25 Mg PO DAILY 07/05/17 Reported Lasix (Furosemide) 20 Mg Tab 20 Mg PO DAILY 07/05/17 Reported Xarelto (Rivaroxaban) 15 Mg Tab 15 Mg PO QAM 07/05/17 Reported Aspir-Low (Aspirin) 81 Mg Tab 81 Mg PO QAM 30 07/06/13 Rx Ocuvite Preservision (Multivitamins/Minerals) 1 Tab Tab 1 Tab PO BID 03/17/10 Reported Review of Systems Constitutional: + see HPI (unable to obtain given pt's mental status) Physical Exam Date Time Temp Pulse Resp B/P (MAP) Pulse Ox O2 Delivery O2 Flow Rate FiO2 07/06/17 08:00 Room Air 07/06/17 07:29 36.3 69 16 126/82 (97) 92 Room Air 07/06/17 05:09 36.7 72 18 136/82 (100) 95 Room Air 07/06/17 00:20 Room Air 07/06/17 00:06 36.5 58 16 134/87 (103) 95 Room Air 07/05/17 20:33 36.8 61 20 120/81 94 Room Air 07/05/17 19:57 60 20 126/73 98 07/05/17 18:00 87 20 127/73 98 Room Air 07/05/17 17:00 88 20 122/76 98 Room Air 07/05/17 16:13 60 20 129/83 97 Room Air 07/05/17 15:23 36.4 76 20 112/76 95 Room Air General Appearance: no apparent distress Respiratory/Chest: no respiratory distress, no accessory muscle use, + decreased breath sounds Cardiovascular: regular rate, rhythm, no gallop, no murmur Abdomen: non tender, + distended Extremities: normal inspection, no pedal edema, no calf tenderness Neurologic/Psych: + disoriented Skin: normal color, no jaundice, no rash Laboratory Results Last 24 Hours Test 07/05/17 16:10 07/05/17 18:30 07/06/17 07:06 White Blood Count 6.66 K/uL 10.05 K/uL Red Blood Count 4.47 M/uL 4.17 M/uL Hemoglobin 15.6 g/dL 14.7 g/dL Hematocrit 44.7 % 41.5 % Mean Corpuscular Volume 100.0 fL 99.5 fL Mean Corpuscular Hemoglobin 34.9 pg 35.3 pg Mean Corpuscular Hemoglobin Concent 34.9 g/dl 35.4 g/dl Platelet Count 246 K/uL 204 K/uL Mean Platelet Volume 9.5 fL 9.5 fL Neutrophils (%) (Auto) 78.6 % 88.0 % Lymphocytes (%) (Auto) 10.5 % 6.1 % Monocytes (%) (Auto) 9.5 % 5.5 % Eosinophils (%) (Auto) 0.9 % 0.1 % Basophils (%) (Auto) 0.2 % 0.1 % Neutrophils # (Auto) 5.24 K/uL 8.85 K/uL Lymphocytes # (Auto) 0.70 K/uL 0.61 K/uL Monocytes # (Auto) 0.63 K/uL 0.55 K/uL Eosinophils # (Auto) 0.06 K/uL 0.01 K/uL Basophils # (Auto) 0.01 K/uL 0.01 K/uL RDW Standard Deviation 50.0 fL 50.0 fL RDW Coefficient of Variation 13.7 % 13.8 % Immature Granulocyte % (Auto) 0.3 % 0.2 % Immature Granulocyte # (Auto) 0.02 K/uL 0.02 K/uL Sodium Level 131 mmol/L 133 mmol/L Potassium Level 3.2 mmol/L 3.1 mmol/L Chloride Level 96 mmol/L 99 mmol/L Carbon Dioxide Level 27 mmol/L 23 mmol/L Anion Gap 8.0 mmol/L 11.0 mmol/L Blood Urea Nitrogen 22 mg/dl 19 mg/dl Creatinine 1.30 mg/dl 1.00 mg/dl Est Creatinine Clear Calc Drug Dose 31.6 ml/min 42.9 ml/min Estimated GFR () 56.1 77.0 Estimated GFR (Non- 48.4 66.4 BUN/Creatinine Ratio 16.5 18.5 Random Glucose 107 mg/dl 93 mg/dl Calcium Level 9.2 mg/dl 8.7 mg/dl Total Bilirubin 1.7 mg/dl Direct Bilirubin 0.5 mg/dl Aspartate Amino Transf (AST/SGOT) 29 U/L Alanine Aminotransferase (ALT/SGPT) 29 U/L Alkaline Phosphatase 67 U/L Total Protein 7.1 gm/dl Albumin 3.4 gm/dl Lipase 272 U/L Urine Color YELLOW Urine Appearance CLEAR Urine pH 6.5 Urine Specific [place] 1.023 Urine Protein NEG Urine Glucose (UA) NEG Urine Ketones NEG Urine Occult Blood NEG Urine Nitrite NEG Urine Bilirubin NEG Urine Urobilinogen NEG Urine Leukocyte Esterase NEG Urine WBC (Auto) 0 /hpf Urine RBC (Auto) 0-4 /hpf Urine Hyaline Casts (Auto) 1-5 /lpf Urine Epithelial Cells (Auto) 0-5 /lpf Urine Bacteria (Auto) NEG Magnesium Level 2.1 mg/dl Impression Patient is a 87 year old male presented to ED w several days of abd/low back pain, poor po intake, found to have colonic distension mostly on ascending and transverse colon areas (max diameter in transverse colon 9.3 cm) ? descending colon obstructing lesion. Currently confused, unable to provide much history. Plan - Keep NPO - KUB this AM -> showed persistent colonic distension w suspected sigmoid volvulus. - Discussed plan of care with pt's who deferred this to her son (Kris: ). Family prefers conservative management unless invasive procedures including colonoscopy is going to be life saving. -> upon finding of sigmoid volvulus on KUB, colonoscopic decompression is recommended. I have discussed this in length w pt's family including , dght and son. They are made aware of benefits & risk of colonoscopy decompression attempt vs conservative measures such as bedside rectal tube placement and enemas which also has risk of unsuccessful symptoms or volvulus resolution. Family is agreeable with colonoscopy intervention. Will order Fleets enema x 2 prior to colonoscopy. I saw and evaluated the patient. He was brought into the hospital with a history of discomfort and altered mental status. Imaging seems to indicate a sigmoid volvulus. We will pursue a urgent colonic decompression today with placement of a decompression tube. I discussed the risks of the procedure to include bleeding, infection, perforation and discomfort with the patient's family. Physical exam Mild distress Diffuse epigastric tenderness Impression: Patient with imaging suggestive of a sigmoid volvulus. We will proceed with urgent colonic decompression. He will need to be seen by general surgery to determine if sigmoid colectomy should be offered.
[2017-07-06] MEDS ORDERED: SOD PHOSPHATE/SOD BIPHOSPHATE ENEMA 132 ML BTL PR ONE (13:30)
--- NOTE | 2017-07-06 14:30 | Hospitalist Progress Note ---
Hospitalist Progress Note Date of Service Jul 06, 2017. (Mery Wade ., PA-C) Subjective Pt evaluation today including: conversation w/ patient, conversation w/ family ( and daughter at bedside ), physical exam, lab review, review of studies, review of inpatient medication list Voiding: pineda catheter in place Patient admits to abdominal/back pain. Currently NPO. ?Mild cognitive impairment- per /daughter, at baseline mentation Patient denies any fever, chills, sweats, lightheadedness, dizziness, vision changes, CP, palpitations, edema, SOB, wheezing, cough, nausea, vomiting, diarrhea, urinary symptoms, melena, numbness/tingling, weakness, anxiety/ depression, active bleeding, or new skin discoloration/changes. Per , issues with abdominal pain due to constipation; usually resolved with BM. Had BM prior to admission with no relief in symptoms. Also, could not longer eat/drink. (Mery Wade ., PA-C) Medications Current Inpatient Medications Medications (Trade) Dose Ordered Sig/Kimberly Route Start Time Stop Time Status Last Admin Dose Admin Ioversol (Optiray 320) 111 ml UD PRN IV 07/05/17 16:00 07/09/17 15:59 Acetaminophen (Tylenol Tab) 650 mg Q4H PRN PO 07/05/17 19:15 08/04/17 19:14 Ondansetron HCl (Zofran Inj) 4 mg Q6H PRN IV 07/05/17 19:15 08/04/17 19:14 Bisacodyl (Dulcolax Supp) 10 mg BID PRN OK 07/05/17 19:15 08/04/17 19:14 Ciprofloxacin HCl (Ciprofloxacin 0.3% Op Soln) 2 drops BID OP 07/05/17 21:00 07/15/17 20:59 07/06/17 10:16 2 DROPS Aspirin (Ecotrin Tab) 81 mg QAM PO 07/06/17 09:00 08/05/17 08:59 07/06/17 10:16 81 MG Levothyroxine Sodium (Synthroid Tab) 75 mcg DAILYBB PO 07/06/17 06:30 08/05/17 06:59 07/06/17 05:40 75 MCG Multivitamins/ Minerals (Multivitamin W/ Minerals Tab) 1 tab DAILY PO 07/06/17 09:00 08/05/17 08:59 07/06/17 10:16 1 TAB Rivaroxaban (Xarelto Tab) 15 mg QDD PO 07/06/17 17:00 08/05/17 17:59 Artificial Tears (Artificial Tears) 1 drops UD PRN OP 07/05/17 19:15 08/04/17 19:14 Hydromorphone HCl (Dilaudid Inj) 0.25 mg Q4H PRN IV 07/06/17 12:15 07/20/17 12:14 (Mery Wade PA-C) Objective Vital Signs Date Time Temp Pulse Resp B/P (MAP) Pulse Ox O2 Delivery O2 Flow Rate FiO2 07/06/17 12:18 Room Air 07/06/17 11:21 36.9 65 16 129/88 (102) 91 Room Air 07/06/17 08:00 Room Air 07/06/17 07:29 36.3 69 16 126/82 (97) 92 Room Air 07/06/17 05:09 36.7 72 18 136/82 (100) 95 Room Air 07/06/17 00:20 Room Air 07/06/17 00:06 36.5 58 16 134/87 (103) 95 Room Air 07/05/17 20:33 36.8 61 20 120/81 94 Room Air 07/05/17 19:57 60 20 126/73 98 07/05/17 18:00 87 20 127/73 98 Room Air 07/05/17 17:00 88 20 122/76 98 Room Air 07/05/17 16:13 60 20 129/83 97 Room Air 07/05/17 15:23 36.4 76 20 112/76 95 Room Air (Mery Wade PA-C) Physical Exam General Appearance: no apparent distress, + thin Eyes: PERRL ENT: + pertinent finding (hard of hearing ) Neck: supple Respiratory/Chest: lungs clear, no respiratory distress, no accessory muscle use Cardiovascular: regular rate, rhythm Abdomen: + abnormal bowel sounds (hypoactive), + distended, + tenderness Extremities: no pedal edema, no calf tenderness Neurologic/Psychiatric: alert, normal mood/affect Skin: normal color, warm/dry, no rash (Murarik, Mery ., PA-C) Laboratory Results Last 24 Hours Test 07/05/17 16:10 07/05/17 18:30 07/06/17 07:06 White Blood Count 6.66 K/uL 10.05 K/uL Red Blood Count 4.47 M/uL 4.17 M/uL Hemoglobin 15.6 g/dL 14.7 g/dL Hematocrit 44.7 % 41.5 % Mean Corpuscular Volume 100.0 fL 99.5 fL Mean Corpuscular Hemoglobin 34.9 pg 35.3 pg Mean Corpuscular Hemoglobin Concent 34.9 g/dl 35.4 g/dl Platelet Count 246 K/uL 204 K/uL Mean Platelet Volume 9.5 fL 9.5 fL Neutrophils (%) (Auto) 78.6 % 88.0 % Lymphocytes (%) (Auto) 10.5 % 6.1 % Monocytes (%) (Auto) 9.5 % 5.5 % Eosinophils (%) (Auto) 0.9 % 0.1 % Basophils (%) (Auto) 0.2 % 0.1 % Neutrophils # (Auto) 5.24 K/uL 8.85 K/uL Lymphocytes # (Auto) 0.70 K/uL 0.61 K/uL Monocytes # (Auto) 0.63 K/uL 0.55 K/uL Eosinophils # (Auto) 0.06 K/uL 0.01 K/uL Basophils # (Auto) 0.01 K/uL 0.01 K/uL RDW Standard Deviation 50.0 fL 50.0 fL RDW Coefficient of Variation 13.7 % 13.8 % Immature Granulocyte % (Auto) 0.3 % 0.2 % Immature Granulocyte # (Auto) 0.02 K/uL 0.02 K/uL Sodium Level 131 mmol/L 133 mmol/L Potassium Level 3.2 mmol/L 3.1 mmol/L Chloride Level 96 mmol/L 99 mmol/L Carbon Dioxide Level 27 mmol/L 23 mmol/L Anion Gap 8.0 mmol/L 11.0 mmol/L Blood Urea Nitrogen 22 mg/dl 19 mg/dl Creatinine 1.30 mg/dl 1.00 mg/dl Est Creatinine Clear Calc Drug Dose 31.6 ml/min 42.9 ml/min Estimated GFR () 56.1 77.0 Estimated GFR (Non- 48.4 66.4 BUN/Creatinine Ratio 16.5 18.5 Random Glucose 107 mg/dl 93 mg/dl Calcium Level 9.2 mg/dl 8.7 mg/dl Total Bilirubin 1.7 mg/dl Direct Bilirubin 0.5 mg/dl Aspartate Amino Transf (AST/SGOT) 29 U/L Alanine Aminotransferase (ALT/SGPT) 29 U/L Alkaline Phosphatase 67 U/L Total Protein 7.1 gm/dl Albumin 3.4 gm/dl Lipase 272 U/L Urine Color YELLOW Urine Appearance CLEAR Urine pH 6.5 Urine Specific [place] 1.023 Urine Protein NEG Urine Glucose (UA) NEG Urine Ketones NEG Urine Occult Blood NEG Urine Nitrite NEG Urine Bilirubin NEG Urine Urobilinogen NEG Urine Leukocyte Esterase NEG Urine WBC (Auto) 0 /hpf Urine RBC (Auto) 0-4 /hpf Urine Hyaline Casts (Auto) 1-5 /lpf Urine Epithelial Cells (Auto) 0-5 /lpf Urine Bacteria (Auto) NEG Magnesium Level 2.1 mg/dl (Mery Wade, SHAYNA) Assessment and Plan This ia a 87 yo M with PMHx of chronic systolic CHF with EF of 35-40% in Aug 2016, cardiomyopathy, sick sinus syndrome s/p cardiac pacemaker insertion on chronic anticoagulation, prostate carcinoma, CAD, atrial septal aneurysm, hx of TIA/CVA hypothyroidism, osteoarthritis presenting with poor oral intake and found to have large colonic distension of the transverse and descending colon. Colonic distention of the transverse and descending colon secondary to sigmoid volvulus: - Admit patient to telemetry - GI consulted, appreciate recommendations -- Planning for colonoscopy today- pretreat w/ fleet enema x2 - General Surgery consulted, appreciate recommendations - IV Dilaudid PRN for pain management - IVF Hypokalemia: Treated w/ PO and IV KCL supplement. Follow K level and replace PRN Chronic systolic CHF, cardiomyopathy, sick sinus syndrome s/p pacemaker insertion, chronic anticoagulation- follows w/ Dr. Amos: - Most recent Echo in August 2016 showing LVEF=35-40% - Lasix 20 mg Po daily and spironolactone 25 mg daily held due to IVF - Continue Xarelto 15 mg QPM, ASA 81 mg every other day Prostate carcinoma- STABLE Hypothyroidism: Levothyroxine 75 g daily DVT prophylaxis: Xarelto CODE STATUS: DO NOT RESUSCITATE Disposition: Patient from home, lives with - CM and PT/OT consulted (Mery Wade ., PATiffanieC) Attending Attestation: Pt seen/examined, chart reviewed, care plan d/w BETITO Wade. I agree w/ the arnold components of her documentation. Pt sleepy during the visit. No emesis. Family reports abdomen looks more distended. Family having hard time deciding about plan of care & treatment. Ultimately decided to proceed w colonoscopy. VSS no fever gen - NAD but sleepy neck - no JVD lying flat heart - RRR lungs - CTA b/l abd - marked distension, BS+ but diminished with occasional high tinkling, mildly tender throughout ext - no edema K 3.1 Na 133 A/P: 1. sigmoid volvulus - after much discussion by family they elected to proceed forward with decompressive colonoscopy by Dr. Ortiz. 2. hypokalemia - replace. 3. hyponatremia - likely due to volume depletion - gentle fluids. 4. chronic systolic CHF - compensated. Luis GLYNN MD (Hung Glynn MD)
[2017-07-06] MEDS ORDERED: MINERAL OIL 30 ML UDC ONE (15:13)
[2017-07-06] MEDS ORDERED: EpHEDrine SULFATE INJ 50 MG/ML AMP IV PRN (15:15)
[2017-07-06] MEDS ORDERED: ATROPINE SULFATE 0.1 MG/ML 5ML SYR IV PRN (15:15)
[2017-07-06] MEDS ORDERED: LIDOCAINE HCL 2% 2 ML VIAL (20MG/ML) ONE (15:23)
[2017-07-06] MEDS ORDERED: FENTANYL CITRATE INJ 50 MCG/1 ML 2 ML VIAL ONE (15:23)
[2017-07-06] MEDS ORDERED: PROPOFOL IV EMULSION 10 MG/ML 20 ML VIAL IV ONE (15:23)
--- NOTE | 2017-07-06 15:54 | GI REPORT ---
Procedure Date: 07/06/2017 3:23 PM Procedure: Colonoscopy Indications: Therapeutic procedure Medicines: Monitored Anesthesia Care Complications: No immediate complications. Estimated blood loss: Minimal. Estimated Blood Loss: Estimated blood loss was minimal. Procedure: Pre-Anesthesia Assessment: - Prior to the procedure, a History and Physical was performed, and patient medications, allergies and sensitivities were reviewed. The patient's tolerance of previous anesthesia was reviewed. - The risks and benefits of the procedure and the sedation options and risks were discussed with the patient. All questions were answered and informed consent was obtained. - Patient identification and proposed procedure were verified prior to the procedure by the physician, the nurse and the skein winding operator. The procedure was verified in the procedure room. - Pre-procedure physical examination revealed no contraindications to sedation. - ASA Grade Assessment: IV - A patient with severe systemic disease that is a constant threat to life. - After reviewing the risks and benefits, the patient was deemed in satisfactory condition to undergo the procedure. - The anesthesia plan was to use monitored anesthesia care (MAC). - Immediately prior to administration of medications, the patient was re-assessed for adequacy to receive sedatives. - The heart rate, respiratory rate, oxygen saturations, blood pressure, adequacy of pulmonary ventilation, and response to care were monitored throughout the procedure. - The physical status of the patient was re-assessed after the procedure. After I obtained informed consent, the scope was passed under direct vision. Throughout the procedure, the patient's blood pressure, pulse, and oxygen saturations were monitored continuously. The On-site loaner was introduced through the anus and advanced to the ascending colon for evaluation. This was the intended extent. The colonoscopy was somewhat difficult due to inadequate bowel prep. Successful completion of the procedure was aided by lavage. The patient tolerated the procedure well. The quality of the bowel preparation was poor. Findings: The digital rectal exam findings include non-thrombosed external hemorrhoids. Pertinent negatives include normal sphincter tone. An area of moderately congested and dusky appearing mucosa was found in the recto-sigmoid colon. The colon (entire examined portion) was moderately tortuous. Decompression of the volvulus was attempted, and partial decompression was achieved. Following the maneuver, a decompression tube was placed to maintain the decompression. Estimated blood loss was minimal. Stool was aspirated for C diff and culture. The exam was otherwise without abnormality. Impression: - Preparation of the colon was poor. - Non-thrombosed external hemorrhoids found on digital rectal exam. - Congested mucosa in the recto-sigmoid colon. - Tortuous colon. - The examination was otherwise normal. - No specimens collected. Recommendation: - Return patient to [facility] for ongoing care. - KUB to check placement of decompresson tube - golyte 100 ml per rectal tube every 1 hour (complete 4 L container) - Broad spectrum antibiotics - Stool sent for C diff / Culture - KUB in am - Further managment per General surgery Gio Ortiz D.O. Gio Ortiz, 07/06/2017 3:54:05 PM This report has been signed electronically. Note Initiated On: 07/06/2017 3:23 PM I attest to the content of the Intraoperative Record and orders documented therein, exceptions below
--- NOTE | 2017-07-06 15:56 | Progress Note ---
Progress Note Date of Service Jul 06, 2017. Progress Note The patient underwent urgent colonoscopy today for decompression and treatment of a suspected sigmoid volvulus. Findings Large amount of stool seen in colon Dilation of the colon noted Decompression tube placed Impression: Patient with a suspected sigmoid volvulus treated with colonic decompression and rectal tube placement today. At this point maximal endoscopic therapy has been provided. Should the patient's volvulus recur he will need urgent surgical intervention. Recommendations KUB today and daily Colyte via rectal tube Surgical consultation to determine timing of sigmoid colectomy
[2017-07-06] MEDS ORDERED: LAVAGE SOLUTION 4000ML PO SCH (16:00)
--- NOTE | 2017-07-06 16:01 | Anesthesiology Progress Note ---
Anesthesia Post Op Note Date & Time Jul 06, 2017 at 16:01 Vital Signs Pain Intensity: 0.0 Vital Signs Past 12 Hours Date Time Temp Pulse Resp B/P (MAP) Pulse Ox O2 Delivery O2 Flow Rate FiO2 07/06/17 15:54 79 16 101/67 (78) 92 Room Air 07/06/17 14:56 37.2 16 116/82 95 Room Air 07/06/17 14:45 37.2 61 16 116/82 (93) 95 Room Air 07/06/17 12:18 Room Air 07/06/17 11:21 36.9 65 16 129/88 (102) 91 Room Air 07/06/17 08:00 Room Air 07/06/17 07:29 36.3 69 16 126/82 (97) 92 Room Air 07/06/17 05:09 36.7 72 18 136/82 (100) 95 Room Air Notes Mental Status: alert / awake / arousable, participated in evaluation Pt Amnestic to Procedure: Yes Nausea / Vomiting: adequately controlled Pain: adequately controlled Airway Patency, RR, SpO2: stable & adequate BP & HR: stable & adequate Hydration State: stable & adequate Anesthetic Complications: no major complications apparent
--- NOTE | 2017-07-06 16:40 | DIAGNOSTIC IMAGING REPORT ---
KUB CLINICAL HISTORY: check placement of rectal tube, s/p decompression COMPARISON STUDY: 07/06/2017 FINDINGS: Postsurgical changes are again evident within the lumbar spine. There is a mildly severe lumbar levoscoliosis. There has been interval insertion of a rectal tube. The tip projects over the proximal descending colon. There is diminishing gaseous distention of the colon. IMPRESSION: 1. Interval insertion of a rectal tube, the tip of which projects over the proximal aspect of the descending colon 2. Decreasing gaseous distention of the colon Electronically signed by: Ronnie Beckford M.D. 07/06/2017 4:39 PM Dictated Date/Time: 07/06/2017 4:37 PM
[2017-07-06] MEDS ORDERED: RIVAROXABAN TAB 15 MG TAB PO SCH (17:00)
--- NOTE | 2017-07-06 17:11 | Surgery Consultation ---
Consultation Date of Consultation: Jul 06, 2017. Attending Physician: Hung Glynn MD History of Present Illness pt is a 87 year old male who was admitted to hospital for colon obstruction, possible sigmoid colon volvulus, pt had colonoscopy with colon decompression, pt denies any significant abdominal pain, some nausea, no vomiting, I saw pt before colonoscopy, pt's and daughter at bed side, pt teddy fever, no diarrhea, last BM about 3 days ago. Past Medical/Surgical History Medical Problems: (1) Failure to thrive Status: Acute (2) Hypokalemia Status: Acute Social History Smoking Status: Former Smoker Smokeless Tobacco Use: No Alcohol Use: none Drug Use: none Marital Status: Housing Status: lives with friends Occupation Status: retired Allergies Coded Allergies: No Known Allergies (Verified , `, 07/05/17) Home Medications Scheduled Acetaminophen (Tylenol 8 Hour Arthritis), 650 MG PO BID Aspirin (Aspir-Low), 81 MG PO QAM Furosemide (Lasix), 20 MG PO DAILY Levothyroxine Sodium (Levothyroxine Sodium), 75 MCG PO QAM Ocuvite Preservision (Ocuvite Preservision), 1 TAB PO BID Rivaroxaban (Xarelto), 15 MG PO QAM Spironolactone (Aldactone), 25 MG PO DAILY Scheduled PRN Polyethylene Glycol-Propylene (Systane), 1 DROPS OP UD PRN for Current Inpatient Medications Current Inpatient Medications Medications (Trade) Dose Ordered Sig/Kimberly Route Start Time Stop Time Status Last Admin Dose Admin Ioversol (Optiray 320) 111 ml UD PRN IV 07/05/17 16:00 07/09/17 15:59 Acetaminophen (Tylenol Tab) 650 mg Q4H PRN PO 07/05/17 19:15 08/04/17 19:14 Ondansetron HCl (Zofran Inj) 4 mg Q6H PRN IV 07/05/17 19:15 08/04/17 19:14 Bisacodyl (Dulcolax Supp) 10 mg BID PRN [place] 07/05/17 19:15 08/04/17 19:14 Ciprofloxacin HCl (Ciprofloxacin 0.3% Op Soln) 2 drops BID OP 07/05/17 21:00 07/15/17 20:59 07/06/17 10:16 2 DROPS Aspirin (Ecotrin Tab) 81 mg QAM PO 07/06/17 09:00 08/05/17 08:59 07/06/17 10:16 81 MG Levothyroxine Sodium (Synthroid Tab) 75 mcg DAILYBB PO 07/06/17 06:30 08/05/17 06:59 07/06/17 05:40 75 MCG Multivitamins/ Minerals (Multivitamin W/ Minerals Tab) 1 tab DAILY PO 07/06/17 09:00 08/05/17 08:59 07/06/17 10:16 1 TAB Rivaroxaban (Xarelto Tab) 15 mg QDD PO 07/06/17 17:00 08/05/17 17:59 Artificial Tears (Artificial Tears) 1 drops UD PRN OP 07/05/17 19:15 08/04/17 19:14 Hydromorphone HCl (Dilaudid Inj) 0.25 mg Q4H PRN IV 07/06/17 12:15 07/20/17 12:14 Ephedrine Sulfate (EpHEDrine SULFATE INJ) 5 mg Q5M PRN IV 07/06/17 15:15 07/06/17 20:00 Atropine Sulfate (Atropine Sulfate 0.1MG/Ml Inj) 0.5 mg Q1M PRN IV 07/06/17 15:15 07/06/17 20:00 Polyethylene Glycol/ Electrolytes (Golytely Soln) 0.4 dose 1600 PO 07/06/17 16:00 07/08/17 08:00 Review of Systems Constitutional: No fever, No chills, No sweats, No weight loss, No weakness, No fatigue, No problem reported ENT: No hearing loss, No unusual epistaxis, No nasal symptoms, No sore throat, No tinnitus, No dental problems, No trouble swallowing, No problem reported Respiratory: No cough, No sputum, No wheezing, No shortness of breath, No dyspnea on exertion, No dyspnea at rest, No hemoptysis, No problem reported Cardiovascular: + problem reported (A-fib, cardiac EF 35-40%, CHF), No chest pain, No orthopnea, No PND, No edema, No claudication, No palpitations Abdomen: + nausea Musculoskeletal: No joint pain, No muscle pain, No swelling, No calf pain, No problem reported Neurologic: No memory loss, No paralysis, No weakness, No numbness/tingling, No vertigo, No balance problems, No problem reported Psychiatric: No depression symptoms, No anhedonism, No anxiety, No insomnia, No substance abuse, No problem reported Endocrine: + problem reported (hypothyriodism), No fatigue, No excessive thirst , No excessive urination Hematologic / Lymphatic: No abnormal bleeding/bruising, No clotting problems, No swollen lymph nodes, No night sweats, No problem reported Physical Exam Date Time Temp Pulse Resp B/P (MAP) Pulse Ox O2 Delivery O2 Flow Rate FiO2 07/06/17 16:26 67 16 109/73 (85) 94 Room Air 07/06/17 16:11 67 16 118/75 (89) 94 Room Air 07/06/17 15:54 79 16 101/67 (78) 92 Room Air 07/06/17 14:56 37.2 16 116/82 95 Room Air 07/06/17 14:45 37.2 61 16 116/82 (93) 95 Room Air 07/06/17 12:18 Room Air 07/06/17 11:21 36.9 65 16 129/88 (102) 91 Room Air 07/06/17 08:00 Room Air 07/06/17 07:29 36.3 69 16 126/82 (97) 92 Room Air 07/06/17 05:09 36.7 72 18 136/82 (100) 95 Room Air 07/06/17 00:20 Room Air 07/06/17 00:06 36.5 58 16 134/87 (103) 95 Room Air 07/05/17 20:33 36.8 61 20 120/81 94 Room Air 07/05/17 19:57 60 20 126/73 98 07/05/17 18:00 87 20 127/73 98 Room Air General Appearance: WD/WN, no apparent distress Head: normocephalic Eyes: normal inspection ENT: normal ENT inspection Neck: supple, no JVD Respiratory/Chest: chest non-tender, lungs clear, normal breath sounds Cardiovascular: regular rate, rhythm, no edema, no gallop, no JVD Abdomen/GI: normal bowel sounds, non tender, soft, + distended Extremities/Musculoskelatal: normal inspection, no calf tenderness, normal capillary refill Neurologic/Psych: no motor/sensory deficits, alert, normal mood/affect Laboratory Results Last 24 Hours Test 07/05/17 18:30 07/06/17 07:06 Urine Color YELLOW Urine Appearance CLEAR Urine pH 6.5 Urine Specific [place] 1.023 Urine Protein NEG Urine Glucose (UA) NEG Urine Ketones NEG Urine Occult Blood NEG Urine Nitrite NEG Urine Bilirubin NEG Urine Urobilinogen NEG Urine Leukocyte Esterase NEG Urine WBC (Auto) 0 /hpf Urine RBC (Auto) 0-4 /hpf Urine Hyaline Casts (Auto) 1-5 /lpf Urine Epithelial Cells (Auto) 0-5 /lpf Urine Bacteria (Auto) NEG White Blood Count 10.05 K/uL Red Blood Count 4.17 M/uL Hemoglobin 14.7 g/dL Hematocrit 41.5 % Mean Corpuscular Volume 99.5 fL Mean Corpuscular Hemoglobin 35.3 pg Mean Corpuscular Hemoglobin Concent 35.4 g/dl Platelet Count 204 K/uL Mean Platelet Volume 9.5 fL Neutrophils (%) (Auto) 88.0 % Lymphocytes (%) (Auto) 6.1 % Monocytes (%) (Auto) 5.5 % Eosinophils (%) (Auto) 0.1 % Basophils (%) (Auto) 0.1 % Neutrophils # (Auto) 8.85 K/uL Lymphocytes # (Auto) 0.61 K/uL Monocytes # (Auto) 0.55 K/uL Eosinophils # (Auto) 0.01 K/uL Basophils # (Auto) 0.01 K/uL RDW Standard Deviation 50.0 fL RDW Coefficient of Variation 13.8 % Immature Granulocyte % (Auto) 0.2 % Immature Granulocyte # (Auto) 0.02 K/uL Sodium Level 133 mmol/L Potassium Level 3.1 mmol/L Chloride Level 99 mmol/L Carbon Dioxide Level 23 mmol/L Anion Gap 11.0 mmol/L Blood Urea Nitrogen 19 mg/dl Creatinine 1.00 mg/dl Est Creatinine Clear Calc Drug Dose 42.9 ml/min Estimated GFR () 77.0 Estimated GFR (Non- 66.4 BUN/Creatinine Ratio 18.5 Random Glucose 93 mg/dl Calcium Level 8.7 mg/dl Magnesium Level 2.1 mg/dl Assessment & Plan Assessment, pt is a 87 year old male who presents with colon obstruction possible sigmoid volvulus, IMP colon obstruction possible sigmoid volvulus, Plan, pt had colonoscopy with colon decompression, continue conservative treatment, base pt is high risk for surgical intervention, no surgical indication now, will Follow up repeat labs in am, Thanks,
[2017-07-07] VITALS (8 sets, daily range): BP systolic 107–134; BP diastolic 61–86; PULSE 59–75; TEMP 36.3–36.8; O2SAT 90–95
[2017-07-07] MEDS: LEVOTHYROXINE 75 MCG TAB PO SCH (06:10)
[2017-07-07 06:37] LABS: BASO % 0.1 %; BASO ABS # 0.01 K/uL (0-0.2); COMPLETE YES; EOS % 0.6 %; HEMATOCRIT 40.1 % (42-52); IG% 0.2 %; LYMPH % 8.6 %; LYMPH ABS # 0.82 K/uL (1.2-3.4); MEAN CORPUSCULAR HEMOGLOBIN 34.3 pg (25-34); MEAN CORPUSCULAR HGB CONC 33.9 g/dl (32-36); MEAN PLATELET VOLUME 9.4 fL (7.4-10.4); MONO % 8.1 %; NEUT % 82.4 %; PLATELET COUNT 190 K/uL (130-400); RED BLOOD COUNT 3.97 M/uL (4.7-6.1); WHITE BLOOD COUNT 9.49 K/uL (4.8-10.8)
[2017-07-07 07:21] LABS: BUN/CREATININE RATIO 22.5 (10-20); CREATININE 0.99 mg/dl (0.60-1.40); POTASSIUM 3.7 mmol/L (3.5-5.1)
--- NOTE | 2017-07-07 08:24 | DIAGNOSTIC IMAGING REPORT ---
KUB CLINICAL HISTORY: Reevaluate colonic distention. COMPARISON STUDY: KUB July 06, 2017 at 4:28 PM. FINDINGS: Rectal tube is in place. Tip projects over the mid descending colon. Colonic distention has improved. There is persistent mild residual colonic distention. No dilated loops of small bowel are identified. Lumbar fusion and multilevel discectomy is incidentally noted. IMPRESSION: 1. Interval improvement in colonic distention. Mild residual gaseous distention of the colon. 2. Rectal tube in place with tip projecting over the mid descending colon. Electronically signed by: Roque Aguilar M.D. 07/07/2017 8:23 AM Dictated Date/Time: 07/07/2017 8:20 AM
[2017-07-07] MEDS: CEROVITE ADV FORMULA TAB PO SCH (09:00)
[2017-07-07] MEDS: ASPIRIN 81 MG ECTAB PO SCH (09:00)
--- NOTE | 2017-07-07 10:07 | Gastroenterology Progress Note ---
Progress Note Date of Service: Jul 07, 2017 Subjective Pt evaluation today including: conversation w/ patient, physical exam, chart review, lab review, review of studies, review of inpatient medication list Pt appears restless this AM, still only oriented to self and place but unaware of situation which brought him into the hospital. Unable to obtain ROS. RN report had total of 800ml Golytely flushed into rectal tube but only 100ml came out. KUB this AM showed improved colonic distension, rectal tube tip at mid descending colon Review of Systems Constitutional: + see HPI (Unable to obtain ROS as pt is confused. ) Medications Current Inpatient Medications Medications (Trade) Dose Ordered Sig/Kimberly Route Start Time Stop Time Status Last Admin Dose Admin Ioversol (Optiray 320) 111 ml UD PRN IV 07/05/17 16:00 07/09/17 15:59 Acetaminophen (Tylenol Tab) 650 mg Q4H PRN PO 07/05/17 19:15 08/04/17 19:14 Ondansetron HCl (Zofran Inj) 4 mg Q6H PRN IV 07/05/17 19:15 08/04/17 19:14 Bisacodyl (Dulcolax Supp) 10 mg BID PRN WI 07/05/17 19:15 08/04/17 19:14 Ciprofloxacin HCl (Ciprofloxacin 0.3% Op Soln) 2 drops BID OP 07/05/17 21:00 07/15/17 20:59 07/06/17 20:58 2 DROPS Aspirin (Ecotrin Tab) 81 mg QAM PO 07/06/17 09:00 08/05/17 08:59 07/06/17 10:16 81 MG Levothyroxine Sodium (Synthroid Tab) 75 mcg DAILYBB PO 07/06/17 06:30 08/05/17 06:59 07/07/17 06:10 75 MCG Multivitamins/ Minerals (Multivitamin W/ Minerals Tab) 1 tab DAILY PO 07/06/17 09:00 08/05/17 08:59 07/06/17 10:16 1 TAB Rivaroxaban (Xarelto Tab) 15 mg QDD PO 07/06/17 17:00 08/05/17 17:59 Future Hold 07/06/17 18:02 15 MG Artificial Tears (Artificial Tears) 1 drops UD PRN OP 07/05/17 19:15 08/04/17 19:14 Hydromorphone HCl (Dilaudid Inj) 0.25 mg Q4H PRN IV 07/06/17 12:15 07/20/17 12:14 07/07/17 00:57 0.25 MG Polyethylene Glycol/ Electrolytes (Golytely Soln) 0.4 dose 1600 PO 07/06/17 16:00 07/08/17 08:00 07/06/17 17:52 0.4 DOSE Potassium Chloride/Sodium Chloride 1,000 ml @ 75 mls/hr [id number] IV 07/07/17 09:00 08/06/17 08:59 Objective Vital Signs Date Time Temp Pulse Resp B/P (MAP) Pulse Ox O2 Delivery O2 Flow Rate FiO2 07/07/17 08:00 Room Air 07/07/17 07:35 36.6 65 16 121/69 (86) 90 Room Air 07/07/17 04:00 95 Nasal Cannula 2.0 07/07/17 03:51 36.8 59 16 107/61 (76) 95 Nasal Cannula 2.0 07/07/17 00:00 92 Room Air 07/06/17 23:42 36.5 80 18 103/68 (80) 92 Room Air 07/06/17 20:08 36.7 70 18 105/68 (80) 91 Room Air 07/06/17 20:00 Room Air 07/06/17 18:00 75 16 116/82 (93) 95 Room Air 07/06/17 17:30 36.6 69 18 109/72 (84) 94 Room Air 07/06/17 16:50 36.5 67 18 119/81 (94) 94 Room Air 07/06/17 16:26 67 16 109/73 (85) 94 Room Air 07/06/17 16:11 67 16 118/75 (89) 94 Room Air 07/06/17 16:00 Room Air 07/06/17 15:54 79 16 101/67 (78) 92 Room Air 07/06/17 14:56 37.2 16 116/82 95 Room Air 07/06/17 14:45 37.2 61 16 116/82 (93) 95 Room Air 07/06/17 12:18 Room Air 07/06/17 11:21 36.9 65 16 129/88 (102) 91 Room Air Physical Exam General Appearance: + mild distress (appears restless and confused) Neck: supple, no JVD, trachea midline Respiratory/Chest: no respiratory distress, no accessory muscle use, + decreased breath sounds Cardiovascular: regular rate, rhythm, no gallop, no murmur Abdomen: non tender, soft, + abnormal bowel sounds (hypoactive) Extremities: normal inspection, no pedal edema, no calf tenderness Neurologic/Psych: + disoriented (only oriented to self and place; appears restless) Laboratory Results Last 24 Hours Test 07/07/17 06:18 White Blood Count 9.49 K/uL Red Blood Count 3.97 M/uL Hemoglobin 13.6 g/dL Hematocrit 40.1 % Mean Corpuscular Volume 101.0 fL Mean Corpuscular Hemoglobin 34.3 pg Mean Corpuscular Hemoglobin Concent 33.9 g/dl Platelet Count 190 K/uL Mean Platelet Volume 9.4 fL Neutrophils (%) (Auto) 82.4 % Lymphocytes (%) (Auto) 8.6 % Monocytes (%) (Auto) 8.1 % Eosinophils (%) (Auto) 0.6 % Basophils (%) (Auto) 0.1 % Neutrophils # (Auto) 7.81 K/uL Lymphocytes # (Auto) 0.82 K/uL Monocytes # (Auto) 0.77 K/uL Eosinophils # (Auto) 0.06 K/uL Basophils # (Auto) 0.01 K/uL RDW Standard Deviation 51.3 fL RDW Coefficient of Variation 13.8 % Immature Granulocyte % (Auto) 0.2 % Immature Granulocyte # (Auto) 0.02 K/uL Sodium Level 138 mmol/L Potassium Level 3.7 mmol/L Chloride Level 102 mmol/L Carbon Dioxide Level 25 mmol/L Anion Gap 11.0 mmol/L Blood Urea Nitrogen 22 mg/dl Creatinine 0.99 mg/dl Est Creatinine Clear Calc Drug Dose 46.1 ml/min Estimated GFR () 77.9 Estimated GFR (Non- 67.2 BUN/Creatinine Ratio 22.5 Random Glucose 90 mg/dl Calcium Level 9.0 mg/dl Assessment and Plan Patient is a 87 year old male presented to ED w several days of abd/low back pain, poor po intake, found to have colonic distension mostly on ascending and transverse colon areas (max diameter in transverse colon 9.3 cm) ? descending colon obstructing lesion. Currently confused, unable to provide much history. KUB yesterday suspicious for sigmoid volvulus. He ultimately underwent colonoscopy decompression w rectal tube placement. Repeat KUB last evening and this AM showed improved colonic distension. His abd exam showed soft abd, non tender when palpated today. Rectal tube in place, but only minimal outpt despite hourly flushes w GoLytely. Plans - Keep NPO , IVF resuscitation. - Reduce Golytely flushed per rectal tube to every 4 hrs. - Would recommend transfer to tertiary care center where Colorectal Surgery is available in the possible event that rectal tube will fall off and he'll likely not benefit from a repeat colonic decompression via colonoscopy and if General Surgery is not planning on any surgical intervention such as sigmoid colectomy here. I saw and evaluated the patient. I again had a long discussion with the patient , his and daughter. Given the sigmoid volvulus I would suggest referral to a center with colorectal surgery support. I would suggest that the rectal tube be maintained with 100 mL of Colyte every 4-6 hours. Please call with any additional questions or concerns, we will sign off as the patient will likely be transferred.
[2017-07-07] MEDS: NSS + 20MEQ KCL 1000ML 1,000 ML IV SCH ×2 (10:12→22:24)
[2017-07-07] MEDS: CIPROFLOXACIN HCL 0.3% OP SOLN 2.5 ML BTL OP SCH ×2 (10:13→20:13)
--- NOTE | 2017-07-07 11:40 | Surgery Progress Note ---
Surgery Progress Note Date of Service Jul 07, 2017. Subjective + feeling well pt feels better, pt denies abdominal pain, no nausea, no vomiting, no fever, passed BM and gas. Objective Vital Signs: Date Time Temp Pulse Resp B/P (MAP) Pulse Ox O2 Delivery O2 Flow Rate FiO2 07/07/17 08:00 Room Air 07/07/17 07:35 36.6 65 16 121/69 (86) 90 Room Air 07/07/17 04:00 95 Nasal Cannula 2.0 07/07/17 03:51 36.8 59 16 107/61 (76) 95 Nasal Cannula 2.0 07/07/17 00:00 92 Room Air 07/06/17 23:42 36.5 80 18 103/68 (80) 92 Room Air 07/06/17 20:08 36.7 70 18 105/68 (80) 91 Room Air 07/06/17 20:00 Room Air 07/06/17 18:00 75 16 116/82 (93) 95 Room Air 07/06/17 17:30 36.6 69 18 109/72 (84) 94 Room Air 07/06/17 16:50 36.5 67 18 119/81 (94) 94 Room Air 07/06/17 16:26 67 16 109/73 (85) 94 Room Air 07/06/17 16:11 67 16 118/75 (89) 94 Room Air 07/06/17 16:00 Room Air 07/06/17 15:54 79 16 101/67 (78) 92 Room Air 07/06/17 14:56 37.2 16 116/82 95 Room Air 07/06/17 14:45 37.2 61 16 116/82 (93) 95 Room Air 07/06/17 12:18 Room Air General Appearance: WD/WN Head: normocephalic Neck: supple, no JVD Respiratory/Chest: chest non-tender, lungs clear, normal breath sounds Cardiovascular: no JVD, no murmur Abdomen: normal bowel sounds, non tender, non distended, soft Extremities: normal range of motion, non-tender, normal inspection Laboratory Results: Results Past 24 Hours Test 07/07/17 06:18 Range/Units White Blood Count 9.49 4.8-10.8 K/uL Red Blood Count 3.97 4.7-6.1 M/uL Hemoglobin 13.6 14.0-18.0 g/dL Hematocrit 40.1 42-52 % Mean Corpuscular Volume 101.0 80-100 fL Mean Corpuscular Hemoglobin 34.3 25-34 pg Mean Corpuscular Hemoglobin Concent 33.9 32-36 g/dl Platelet Count 190 130-400 K/uL Mean Platelet Volume 9.4 7.4-10.4 fL Neutrophils (%) (Auto) 82.4 % Lymphocytes (%) (Auto) 8.6 % Monocytes (%) (Auto) 8.1 % Eosinophils (%) (Auto) 0.6 % Basophils (%) (Auto) 0.1 % Neutrophils # (Auto) 7.81 1.4-6.5 K/uL Lymphocytes # (Auto) 0.82 1.2-3.4 K/uL Monocytes # (Auto) 0.77 0.11-0.59 K/uL Eosinophils # (Auto) 0.06 0-0.5 K/uL Basophils # (Auto) 0.01 0-0.2 K/uL RDW Standard Deviation 51.3 36.4-46.3 fL RDW Coefficient of Variation 13.8 11.5-14.5 % Immature Granulocyte % (Auto) 0.2 % Immature Granulocyte # (Auto) 0.02 0.00-0.02 K/uL Sodium Level 138 136-145 mmol/L Potassium Level 3.7 3.5-5.1 mmol/L Chloride Level 102 98-107 mmol/L Carbon Dioxide Level 25 21-32 mmol/L Anion Gap 11.0 3-11 mmol/L Blood Urea Nitrogen 22 7-18 mg/dl Creatinine 0.99 0.60-1.40 mg/dl Est Creatinine Clear Calc Drug Dose 46.1 ml/min Estimated GFR () 77.9 Estimated GFR (Non- 67.2 BUN/Creatinine Ratio 22.5 10-20 Random Glucose 90 70-99 mg/dl Calcium Level 9.0 8.5-10.1 mg/dl Microbiology Results 07/06/17 C.difficile Toxin B Gene (PCR) - Final, Complete No C. difficile toxin B gene detected 07/06/17 Shiga Toxin Test, Received Pending 07/06/17 Stool Culture, Received Pending Assessment & Plan IMP: S/P colonoscopy , colon decompression for sigmoid volvulus. pt is doing better, GI doctor recommend to do sigmoid colectomy, pt is high risks for surgery, if pt needs surgery , pt should transfer to higher level medical center, D/W pt's and daughter who want to transfer to higher level care. no emergent surgery indication now, Dr Cox will F/U this pt over weekend
[2017-07-07] MEDS: LAVAGE SOLUTION 4000ML PR SCH ×4 (12:00→23:56)
--- NOTE | 2017-07-07 14:41 | Hospitalist Progress Note ---
Hospitalist Progress Note Date of Service Jul 07, 2017. (Mery Wade ., PATiffanieC) Subjective Pt evaluation today including: conversation w/ patient, conversation w/ family (daughter at bedside ), physical exam, lab review, review of studies, review of inpatient medication list Voiding: pineda catheter in place Patient NPO. Voices no abdominal complaints. +chronic back pain. Per daughter, confusion has improved since this AM. ROS cannot be obtained secondary to mental status/hard of hearing (hearing aids not in). (Mery Wade ., GIANNAC) Medications Current Inpatient Medications Medications (Trade) Dose Ordered Sig/Kimberly Route Start Time Stop Time Status Last Admin Dose Admin Ioversol (Optiray 320) 111 ml UD PRN IV 07/05/17 16:00 07/09/17 15:59 Acetaminophen (Tylenol Tab) 650 mg Q4H PRN PO 07/05/17 19:15 08/04/17 19:14 Ondansetron HCl (Zofran Inj) 4 mg Q6H PRN IV 07/05/17 19:15 08/04/17 19:14 Bisacodyl (Dulcolax Supp) 10 mg BID PRN [place] 07/05/17 19:15 08/04/17 19:14 Ciprofloxacin HCl (Ciprofloxacin 0.3% Op Soln) 2 drops BID OP 07/05/17 21:00 07/15/17 20:59 07/07/17 10:13 2 DROPS Aspirin (Ecotrin Tab) 81 mg QAM PO 07/06/17 09:00 08/05/17 08:59 07/06/17 10:16 81 MG Levothyroxine Sodium (Synthroid Tab) 75 mcg DAILYBB PO 07/06/17 06:30 08/05/17 06:59 07/07/17 06:10 75 MCG Multivitamins/ Minerals (Multivitamin W/ Minerals Tab) 1 tab DAILY PO 07/06/17 09:00 08/05/17 08:59 07/06/17 10:16 1 TAB Rivaroxaban (Xarelto Tab) 15 mg QDD PO 07/06/17 17:00 08/05/17 17:59 Future Hold 07/06/17 18:02 15 MG Artificial Tears (Artificial Tears) 1 drops UD PRN OP 07/05/17 19:15 08/04/17 19:14 Hydromorphone HCl (Dilaudid Inj) 0.25 mg Q4H PRN IV 07/06/17 12:15 07/20/17 12:14 07/07/17 00:57 0.25 MG Potassium Chloride/Sodium Chloride 1,000 ml @ 75 mls/hr [id number] IV 07/07/17 09:00 08/06/17 08:59 07/07/17 10:12 75 MLS/HR Polyethylene Glycol/ Electrolytes (Golytely Soln) 0.4 dose Q4 MO 07/07/17 12:00 07/10/17 08:00 07/07/17 12:00 0.4 DOSE (Mery Wade, SHAYNA) Objective Vital Signs Date Time Temp Pulse Resp B/P (MAP) Pulse Ox O2 Delivery O2 Flow Rate FiO2 07/07/17 12:28 Room Air 07/07/17 11:31 36.4 66 16 129/86 (100) 07/07/17 08:00 Room Air 07/07/17 07:35 36.6 65 16 121/69 (86) 90 Room Air 07/07/17 04:00 95 Nasal Cannula 2.0 07/07/17 03:51 36.8 59 16 107/61 (76) 95 Nasal Cannula 2.0 07/07/17 00:00 92 Room Air 07/06/17 23:42 36.5 80 18 103/68 (80) 92 Room Air 07/06/17 20:08 36.7 70 18 105/68 (80) 91 Room Air 07/06/17 20:00 Room Air 07/06/17 18:00 75 16 116/82 (93) 95 Room Air 07/06/17 17:30 36.6 69 18 109/72 (84) 94 Room Air 07/06/17 16:50 36.5 67 18 119/81 (94) 94 Room Air 07/06/17 16:26 67 16 109/73 (85) 94 Room Air 07/06/17 16:11 67 16 118/75 (89) 94 Room Air 07/06/17 16:00 Room Air 07/06/17 15:54 79 16 101/67 (78) 92 Room Air 07/06/17 14:56 37.2 16 116/82 95 Room Air 07/06/17 14:45 37.2 61 16 116/82 (93) 95 Room Air (Mery Wade PA-C) Physical Exam General Appearance: no apparent distress, + thin Eyes: normal inspection, PERRL ENT: hearing grossly normal Neck: supple Respiratory/Chest: no respiratory distress, no accessory muscle use, + decreased breath sounds Cardiovascular: regular rate, rhythm, + JVD Abdomen: non tender, soft, + abnormal bowel sounds (hypoactive ) Extremities: no pedal edema, no calf tenderness Neurologic/Psychiatric: alert, + disoriented Skin: normal color, warm/dry, no rash (Mery Wade PA-C) Laboratory Results Last 24 Hours Test 07/07/17 06:18 White Blood Count 9.49 K/uL Red Blood Count 3.97 M/uL Hemoglobin 13.6 g/dL Hematocrit 40.1 % Mean Corpuscular Volume 101.0 fL Mean Corpuscular Hemoglobin 34.3 pg Mean Corpuscular Hemoglobin Concent 33.9 g/dl Platelet Count 190 K/uL Mean Platelet Volume 9.4 fL Neutrophils (%) (Auto) 82.4 % Lymphocytes (%) (Auto) 8.6 % Monocytes (%) (Auto) 8.1 % Eosinophils (%) (Auto) 0.6 % Basophils (%) (Auto) 0.1 % Neutrophils # (Auto) 7.81 K/uL Lymphocytes # (Auto) 0.82 K/uL Monocytes # (Auto) 0.77 K/uL Eosinophils # (Auto) 0.06 K/uL Basophils # (Auto) 0.01 K/uL RDW Standard Deviation 51.3 fL RDW Coefficient of Variation 13.8 % Immature Granulocyte % (Auto) 0.2 % Immature Granulocyte # (Auto) 0.02 K/uL Sodium Level 138 mmol/L Potassium Level 3.7 mmol/L Chloride Level 102 mmol/L Carbon Dioxide Level 25 mmol/L Anion Gap 11.0 mmol/L Blood Urea Nitrogen 22 mg/dl Creatinine 0.99 mg/dl Est Creatinine Clear Calc Drug Dose 46.1 ml/min Estimated GFR () 77.9 Estimated GFR (Non- 67.2 BUN/Creatinine Ratio 22.5 Random Glucose 90 mg/dl Calcium Level 9.0 mg/dl (Mery Wade PA-C) Assessment and Plan This ia a 87 yo M with PMHx of chronic systolic CHF with EF of 35-40% in Aug 2016, cardiomyopathy, sick sinus syndrome s/p cardiac pacemaker insertion on chronic anticoagulation, prostate carcinoma, CAD, atrial septal aneurysm, hx of TIA/CVA hypothyroidism, osteoarthritis presenting with poor oral intake and found to have large colonic distension of the transverse and descending colon. Colonic distention of the transverse and descending colon secondary to sigmoid volvulus: - Admit patient to telemetry - GI consulted, appreciate recommendations -- s/p decompression colonoscopy and rectal tube on 07/06 -- NPO, advance diet per GI recommendations - General Surgery consulted, appreciate recommendations -- Continue to monitor, may need transferred to tertiary center for surgery - Stool c. diff negative, stool cultures pending - IV Dilaudid 0.25 mg q4 hrs PRN for pain management - IVF @ 75 ml/hr- monitor closely for acute CHF Hypokalemia- RESOLVED: Treated w/ PO and IV KCL supplement. IV NSS + 20 mEq KCL supplement. Follow K level and replace PRN Hyponatremia, likely secondary to dehydration- RESOLVED: IVF, follow PRP Chronic systolic CHF, cardiomyopathy, sick sinus syndrome s/p pacemaker insertion, chronic anticoagulation- follows w/ Dr. Amos: - Most recent Echo in August 2016 showing LVEF= 35-40% - Lasix 20 mg PO daily and Spironolactone 25 mg daily held due to IVF - Continue Xarelto 15 mg QPM, ASA 81 mg every other day Prostate carcinoma- STABLE Hypothyroidism: Levothyroxine 75 g daily DVT prophylaxis: Xarelto CODE STATUS: DO NOT RESUSCITATE Disposition: Patient from home, lives with - CM and PT/OT consulted - Patient may need transfer to tertiary center for surgical procedure- no emergent transfer needed at this time (Mery Wade ., PATiffanieC) Attending Attestation: Pt seen/examined, chart reviewed, care plan d/w BETITO Wade. I agree w/ the arnold components of her documentation except - xarelto currently on hold. Pt awake/alert during my visit but confused and I have difficulty communicating w/ him due to severe hearing impairment. Looks better today /daughter/grand-daughter at bedside w/ numerous questions VSS no fever gen - NAD, looks better neck - JVD + heart - RRR lungs - CTA b/l abd - soft, NT, ND, BS+ (marked improvement from yesterday) ext - no edema K and Na - normal A/P: 1. sigmoid volvulus - s/p colonic decompression via colonoscopy yesterday by Dr. Ortiz. Clinically and radiographically improved. Follow conservatively with serial exams and KUB x-ray in am. Family aware that if clinically or radiographically he worsens he would need immediate transfer to tertiary care center. 2. hypokalemia - resolved. 3. hyponatremia - resolved. 4. chronic systolic CHF - compensated. 5. 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 6. pacemaker status; xarelto on hold in the event he needs surgery. 7. 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 family extensively updated Luis GLYNN MD (Hung Glynn MD)
[2017-07-08] VITALS (7 sets, daily range): BP systolic 127–146; BP diastolic 81–93; PULSE 62–73; TEMP 36.4–36.9; O2SAT 90–96
[2017-07-08] MEDS: LAVAGE SOLUTION 4000ML PR SCH ×6 (04:21→23:33)
[2017-07-08] MEDS: LEVOTHYROXINE 75 MCG TAB PO SCH (06:29)
[2017-07-08 06:33] LABS: BASO % 0.1 %; BASO ABS # 0.01 K/uL (0-0.2); COMPLETE YES; EOS % 1.4 %; HEMATOCRIT 43.4 % (42-52); IG% 0.3 %; LYMPH % 10.6 %; LYMPH ABS # 0.78 K/uL (1.2-3.4); MEAN CELL VOLUME 102.4 fL (80-100); MEAN CORPUSCULAR HEMOGLOBIN 34.7 pg (25-34); MEAN CORPUSCULAR HGB CONC 33.9 g/dl (32-36); MEAN PLATELET VOLUME 9.6 fL (7.4-10.4); MONO % 8.5 %; NEUT % 79.1 %; PLATELET COUNT 194 K/uL (130-400); RED BLOOD COUNT 4.24 M/uL (4.7-6.1); WHITE BLOOD COUNT 7.39 K/uL (4.8-10.8)
[2017-07-08 07:09] LABS: BUN/CREATININE RATIO 25.5 (10-20); CALCIUM 8.5 mg/dl (8.5-10.1); CREATININE 0.9 mg/dl (0.60-1.40); POTASSIUM 4.2 mmol/L (3.5-5.1)
--- NOTE | 2017-07-08 07:11 | DIAGNOSTIC IMAGING REPORT ---
KUB CLINICAL HISTORY: volvulus, rectal tube COMPARISON STUDY: 07/07/2017 FINDINGS: The rectal tube projects over the midline, and is likely located within the sigmoid. The colon has been decompressed. There is no pathologic bowel dilatation. Postsurgical changes are present within the spine. There is a prominent levoscoliosis. IMPRESSION: Interval decompression of the colon. No evidence of pathologic bowel dilatation. Rectal tube with its tip likely located within the sigmoid Electronically signed by: Ronnie Beckford M.D. 07/08/2017 7:10 AM Dictated Date/Time: 07/08/2017 7:08 AM
[2017-07-08] MEDS: CEROVITE ADV FORMULA TAB PO SCH (07:49)
[2017-07-08] MEDS: ASPIRIN 81 MG ECTAB PO SCH (07:49)
[2017-07-08] MEDS: CIPROFLOXACIN HCL 0.3% OP SOLN 2.5 ML BTL OP SCH ×2 (07:49→19:48)
[2017-07-08] MEDS: NSS + 20MEQ KCL 1000ML 1,000 ML IV SCH (11:53)
--- NOTE | 2017-07-08 15:28 | Surgery Progress Note ---
Surgery Progress Note Date of Service Jul 08, 2017. Subjective 87 year old male with multiple medical problems, admitted with sigmoid volvulus status post decompression with colonoscopy and rectal tube. Overall pain improved. patient is somewhat altered and no family at bedside, one on one sitter present. Objective Vital Signs: Date Time Temp Pulse Resp B/P (MAP) Pulse Ox O2 Delivery O2 Flow Rate FiO2 07/08/17 14:49 36.9 65 16 135/92 (106) 96 Room Air 07/08/17 12:00 95 Room Air 07/08/17 11:32 36.4 73 16 146/81 (102) 95 Room Air 07/08/17 08:00 91 Room Air 2.0 07/08/17 07:43 36.7 71 18 134/93 (107) 91 Room Air 07/08/17 04:08 36.4 62 18 131/84 (100) 90 Room Air 07/08/17 04:00 Room Air 07/08/17 00:00 Room Air 07/07/17 23:26 36.3 61 20 134/85 (101) 93 Room Air 07/07/17 20:05 Room Air 07/07/17 19:24 36.5 69 18 120/79 (93) 94 Room Air 07/07/17 16:00 Room Air 07/07/17 15:57 36.5 75 18 128/83 (98) General Appearance: no apparent distress, + thin Head: normocephalic, atraumatic Neck: supple, no adenopathy Respiratory/Chest: chest non-tender, no respiratory distress, + rales Cardiovascular: regular rate, rhythm, no edema Abdomen: normal bowel sounds, non tender, non distended, soft Laboratory Results: Results Past 24 Hours Test 07/08/17 06:03 Range/Units White Blood Count 7.39 4.8-10.8 K/uL Red Blood Count 4.24 4.7-6.1 M/uL Hemoglobin 14.7 14.0-18.0 g/dL Hematocrit 43.4 42-52 % Mean Corpuscular Volume 102.4 80-100 fL Mean Corpuscular Hemoglobin 34.7 25-34 pg Mean Corpuscular Hemoglobin Concent 33.9 32-36 g/dl Platelet Count 194 130-400 K/uL Mean Platelet Volume 9.6 7.4-10.4 fL Neutrophils (%) (Auto) 79.1 % Lymphocytes (%) (Auto) 10.6 % Monocytes (%) (Auto) 8.5 % Eosinophils (%) (Auto) 1.4 % Basophils (%) (Auto) 0.1 % Neutrophils # (Auto) 5.85 1.4-6.5 K/uL Lymphocytes # (Auto) 0.78 1.2-3.4 K/uL Monocytes # (Auto) 0.63 0.11-0.59 K/uL Eosinophils # (Auto) 0.10 0-0.5 K/uL Basophils # (Auto) 0.01 0-0.2 K/uL RDW Standard Deviation 52.4 36.4-46.3 fL RDW Coefficient of Variation 14.0 11.5-14.5 % Immature Granulocyte % (Auto) 0.3 % Immature Granulocyte # (Auto) 0.02 0.00-0.02 K/uL Sodium Level 140 136-145 mmol/L Potassium Level 4.2 3.5-5.1 mmol/L Chloride Level 106 98-107 mmol/L Carbon Dioxide Level 26 21-32 mmol/L Anion Gap 8.0 3-11 mmol/L Blood Urea Nitrogen 23 7-18 mg/dl Creatinine 0.90 0.60-1.40 mg/dl Est Creatinine Clear Calc Drug Dose 50.8 ml/min Estimated GFR () 87.5 Estimated GFR (Non- 75.5 BUN/Creatinine Ratio 25.5 10-20 Random Glucose 75 70-99 mg/dl Calcium Level 8.5 8.5-10.1 mg/dl Diagnostic Interpretation: KUB CLINICAL HISTORY: volvulus, rectal tube COMPARISON STUDY: 07/07/2017 FINDINGS: The rectal tube projects over the midline, and is likely located within the sigmoid. The colon has been decompressed. There is no pathologic bowel dilatation. Postsurgical changes are present within the spine. There is a prominent levoscoliosis. IMPRESSION: Interval decompression of the colon. No evidence of pathologic bowel dilatation. Rectal tube with its tip likely located within the sigmoid Assessment & Plan Multiple medical problems admitted with sigmoid volvulus. He is a high risk surgical candidate. If surgery becomes necessary, I agree with Dr. Spring and would recommend transfer to tertiary facility. Igor Rush DO
[2017-07-08] MEDS ORDERED: DEXTROSE 50% 50 ML SYR ONE (19:20)
--- NOTE | 2017-07-08 19:30 | Discharge Instructions ---
Discharge Instructions Date of Service Jul 08, 2017. Admission Reason for Admission: Colonic Obstruction Discharge Discharge Diagnosis / Problem: colonic obstruction due to sigmoid volvulus Discharge Goals Goal(s): Learn about illness, Diagnostic testing, Therapeutic intervention Activity Recommendations Activity Limitations: as noted below bedrest . Current Hospital Diet Patient's current hospital diet: Discharge Diet Recommended Diet: N/A Procedures Procedures Performed: COLONOSCOPY WITH DECOMPRESSION - Dr Gio Ortiz Pending Studies Studies pending at discharge: yes List of pending studies: stool culture Medical Emergencies . Who to Call and When: Medical Emergencies: If at any time you feel your situation is an emergency, please call 911 immediately. . Non-Emergent Contact Non-Emergency issues call your: Measurement Operator Call Non-Emergent contact if: temperature is above 100.5, your pain is not controlled, you have any medication questions . . "Provider Documentation" section prepared by Hung Glynn. . VTE Core Measure Inpt VTE Proph given/why not?: Other Anticoagulation, T.E.D. Stockings, SCD's
--- NOTE | 2017-07-08 19:33 | Discharge Summary ---
Discharge Summary Date of Service Jul 08, 2017. Discharge Summary Admission Date: Jul 05, 2017 at 19:12 Discharge Date: Jul 09, 2017 Discharge Disposition: Acute care facility ([facility] - accepting attending physician Dr. Adithya Caba) Principal Diagnosis: sigmoid volvulus Problems/Secondary Diagnoses: 1. chronic systolic CHF, EF 35-40% 2. CKD stage 2 3. acute kidney injury 4. hyponatremia - resolved 5. hypokalemia - resolved 6. metabolic encephalopathy - improved 7. dementia 8. hearing impairment 9. h/o CAD 10. h/o TIA/Stroke 11. h/o sick sinus syndrome s/p pacemaker insertion 12. h/o atrial fibrillation Immunizations: Have You Had Influenza Vaccine: N/A History of Tetanus Vaccine?: Yes History of Pneumococcal: Yes History of Hepatitis B Vaccine: No Procedures: 1. CT lumbar spine - IMPRESSION: 1. No acute lumbar spine fracture or subluxation. 2. Status post posterior decompression with L2-L5 bilateral pedicle screw fusion and multilevel discectomy, as detailed above. 3. Moderate levoscoliosis of the lumbar spine. 4. Suboptimal evaluation of the central canal and neural foramen given CT technique. 2. CT abd/pelvis - 1. Considerable distention of the transverse and to lesser extent ascending colon. 2. This raises the possibility of a descending colonic obstructing lesion with colonoscopy recommended. 3. Small left effusion. 3. colonoscopy - Gio Ortiz DO Findings: The digital rectal exam findings include non-thrombosed external hemorrhoids. Pertinent negatives include normal sphincter tone. An area of moderately congested and dusky appearing mucosa was found in the recto-sigmoid colon. The colon (entire examined portion) was moderately tortuous. Decompression of the volvulus was attempted, and partial decompression was achieved. Following the maneuver, a decompression tube was placed to maintain the decompression. Estimated blood loss was minimal. Stool was aspirated for C diff and culture. Consultations: 1. gastroenterology - Gio Ortiz DO 2. general surgery - Frank Spring MD Discharge Exam Physical Exam: General Appearance: no apparent distress ENT: + pertinent finding (MM dry, severe hearing impairment) Neck: + JVD Respiratory/Chest: lungs clear, no respiratory distress, no accessory muscle use, + pertinent finding (no rales) Cardiovascular: regular rate, rhythm, no gallop, no murmur, normal peripheral pulses Abdomen / GI: normal bowel sounds, non tender, soft, no organomegaly, + pertinent finding (rectal tube in place; pineda catheter in place) Extremities: no pedal edema Neurologic/Psychiatric: + pertinent finding (hearing impaired, mildly confused, no focal deficits (strength 5/5 x 4 exts)) Hospital Course HISTORY OF PRESENT ILLNESS: 87yo male with history of chronic systolic CHF with EF of 35-40% in Aug 2016, sick sinus syndrome s/p cardiac pacemaker insertion on chronic anticoagulation ( xarelto), prostate carcinoma, CAD, atrial septal aneurysm, history of TIA/CVA, hypothyroidism, and dementia who presented with low back pain/poor oral intake and found to have a large amount of colonic distension of the transverse and descending colon on imaging. The patient was a poor historian, and no other family members were present at bedside during the admission assessment. He reported having low back pain which was chronic although the pain was much worse than usual. There was a report of not eating well or drinking well for several days. Patient also had not had a bowel movement in several days. There had been no nausea or vomiting. HOSPITAL COURSE: The patient was made NPO and given IVF. Potassium supplementation was provided for his hypokalemia. By the AM of hospital day #2 his hyponatremia and hypokalemia were both improving. Unfortunately a repeat KUB x-ray on hospital day #2 showed findings concerning for developing sigmoid volvulus. GI was consulted who recommended urgent decompressive colonoscopy. This was performed by Dr. Gio Ortiz. During the procedure a rectal tube was placed. Post-colonoscopy his KUB showed less gaseous distension of the colon suggesting that the colonoscopy was successful. On hospital day #3 another KUB x-ray showed additional improvement in his colonic distension. His rectal tube was continued along with q4h golytely via the tube. NPO status was maintained. On hospital day #4 his KUB x-ray was essentially normal and his abdominal examination was entirely normal. Mentation was improved and labs showed resolution of both his hyponatremia and hypokalemia. Fortunately, despite IV hydration, his CHF remained compensated. All other medical problems remained stable as well. Despite his clinical improvement both the general surgery and GI teams felt it would be best for him to be transferred to a tertiary care center where specialized colorectal surgery was available. His surgical risk, if he were to need surgery, was quite high in light of his cardiac disease, advanced age, etc. Dr. Adithya Caba from the colorectal team was contacted at [facility] and he accepted Mr. Alarcon in transfer for ongoing care. At time of transfer his vitals were stable, his abdominal exam was benign, and rectal tube/pineda catheter remained in place. Of note - the patient's last dose of xarelto was on 07/06/17 at 1800. He did NOT receive xarelto on 07/07 or 07/08. 07/06/17 07:06 Red Blood Count 4.17, Mean Corpuscular Volume 99.5, Mean Corpuscular Hemoglobin 35.3, Mean Corpuscular Hemoglobin Concent 35.4, Mean Platelet Volume 9.5, Neutrophils (%) (Auto) 88.0, Lymphocytes (%) (Auto) 6.1, Monocytes (%) (Auto) 5.5, Eosinophils (%) (Auto) 0.1, Basophils (%) (Auto) 0.1, Neutrophils # (Auto) 8.85, Lymphocytes # (Auto) 0.61, Monocytes # (Auto) 0.55, Eosinophils # (Auto) 0.01, Basophils # (Auto) 0.01 07/07/17 06:18 Red Blood Count 3.97, Mean Corpuscular Volume 101.0, Mean Corpuscular Hemoglobin 34.3, Mean Corpuscular Hemoglobin Concent 33.9, Mean Platelet Volume 9.4, Neutrophils (%) (Auto) 82.4, Lymphocytes (%) (Auto) 8.6, Monocytes (%) ( Auto) 8.1, Eosinophils (%) (Auto) 0.6, Basophils (%) (Auto) 0.1, Neutrophils # ( Auto) 7.81, Lymphocytes # (Auto) 0.82, Monocytes # (Auto) 0.77, Eosinophils # ( Auto) 0.06, Basophils # (Auto) 0.01 07/08/17 06:03 Red Blood Count 4.24, Mean Corpuscular Volume 102.4, Mean Corpuscular Hemoglobin 34.7, Mean Corpuscular Hemoglobin Concent 33.9, Mean Platelet Volume 9.6, Neutrophils (%) (Auto) 79.1, Lymphocytes (%) (Auto) 10.6, Monocytes (%) ( Auto) 8.5, Eosinophils (%) (Auto) 1.4, Basophils (%) (Auto) 0.1, Neutrophils # ( Auto) 5.85, Lymphocytes # (Auto) 0.78, Monocytes # (Auto) 0.63, Eosinophils # ( Auto) 0.10, Basophils # (Auto) 0.01 07/06/17 07:06 07/07/17 06:18 07/08/17 06:03 Test 07/06/17 07:06 07/07/17 06:18 07/08/17 06:03 07/08/17 19:18 White Blood Count 10.05 K/uL (4.8-10.8) 9.49 K/uL (4.8-10.8) 7.39 K/uL (4.8-10.8) Red Blood Count 4.17 M/uL (4.7-6.1) 3.97 M/uL (4.7-6.1) 4.24 M/uL (4.7-6.1) Hemoglobin 14.7 g/dL (14.0-18.0) 13.6 g/dL (14.0-18.0) 14.7 g/dL (14.0-18.0) Hematocrit 41.5 % (42-52) 40.1 % (42-52) 43.4 % (42-52) Mean Corpuscular Volume 99.5 fL (80-100) 101.0 fL (80-100) 102.4 fL (80-100) Mean Corpuscular Hemoglobin 35.3 pg (25-34) 34.3 pg (25-34) 34.7 pg (25-34) Mean Corpuscular Hemoglobin Concent 35.4 g/dl (32-36) 33.9 g/dl (32-36) 33.9 g/dl (32-36) Platelet Count 204 K/uL (130-400) 190 K/uL (130-400) 194 K/uL (130-400) Mean Platelet Volume 9.5 fL (7.4-10.4) 9.4 fL (7.4-10.4) 9.6 fL (7.4-10.4) Neutrophils (%) (Auto) 88.0 % 82.4 % 79.1 % Lymphocytes (%) (Auto) 6.1 % 8.6 % 10.6 % Monocytes (%) (Auto) 5.5 % 8.1 % 8.5 % Eosinophils (%) (Auto) 0.1 % 0.6 % 1.4 % Basophils (%) (Auto) 0.1 % 0.1 % 0.1 % Neutrophils # (Auto) 8.85 K/uL (1.4-6.5) 7.81 K/uL (1.4-6.5) 5.85 K/uL (1.4-6.5) Lymphocytes # (Auto) 0.61 K/uL (1.2-3.4) 0.82 K/uL (1.2-3.4) 0.78 K/uL (1.2-3.4) Monocytes # (Auto) 0.55 K/uL (0.11-0.59) 0.77 K/uL (0.11-0.59) 0.63 K/uL (0.11-0.59) Eosinophils # (Auto) 0.01 K/uL (0-0.5) 0.06 K/uL (0-0.5) 0.10 K/uL (0-0.5) Basophils # (Auto) 0.01 K/uL (0-0.2) 0.01 K/uL (0-0.2) 0.01 K/uL (0-0.2) RDW Standard Deviation 50.0 fL (36.4-46.3) 51.3 fL (36.4-46.3) 52.4 fL (36.4-46.3) RDW Coefficient of Variation 13.8 % (11.5-14.5) 13.8 % (11.5-14.5) 14.0 % (11.5-14.5) Immature Granulocyte % (Auto) 0.2 % 0.2 % 0.3 % Immature Granulocyte # (Auto) 0.02 K/uL (0.00-0.02) 0.02 K/uL (0.00-0.02) 0.02 K/uL (0.00-0.02) Anion Gap 11.0 mmol/L (3-11) 11.0 mmol/L (3-11) 8.0 mmol/L (3-11) Est Creatinine Clear Calc Drug Dose 42.9 ml/min 46.1 ml/min 50.8 ml/min Estimated GFR () 77.0 77.9 87.5 Estimated GFR (Non- 66.4 67.2 75.5 BUN/Creatinine Ratio 18.5 (10-20) 22.5 (10-20) 25.5 (10-20) Calcium Level 8.7 mg/dl (8.5-10.1) 9.0 mg/dl (8.5-10.1) 8.5 mg/dl (8.5-10.1) Magnesium Level 2.1 mg/dl (1.8-2.4) Bedside Glucose 64 mg/dl (70-99) Date/Time Source Procedure Growth Status 07/06/17 15:33 Stool C.difficile Toxin B Gene (PCR) - Final No C. difficile toxin B gene detected Complete 07/06/17 15:33 Stool Shiga Toxin Test - Preliminary No E. Coli shiga toxin 1 or shiga tox... Resulted 07/06/17 15:33 Stool Stool Culture - Preliminary NO SALMONELLA ISOLATED TO DATE,... Resulted KUB - 07/08/2017 CLINICAL HISTORY: volvulus, rectal tube COMPARISON STUDY: 07/07/2017 FINDINGS: The rectal tube projects over the midline, and is likely located within the sigmoid. The colon has been decompressed. There is no pathologic bowel dilatation. Postsurgical changes are present within the spine. There is a prominent levoscoliosis. IMPRESSION: Interval decompression of the colon. No evidence of pathologic bowel dilatation. Rectal tube with its tip likely located within the sigmoid. I would like to thank Dr. Adithya Caba and the colorectal surgical team at [facility] for accepting Mr. Ayers in transfer for ongoing care. Total Time Spent: Greater than 30 minutes This includes examination of the patient, discharge planning, medication reconciliation, and communication with other providers. Discharge Instructions Please refer to the electronic Patient Visit Report (Discharge Instructions) for additional information. Follow-Up to be determined after discharge from [facility] Additional Copies To Gio Ortiz, ; Brenton Booker M.D.; Adithya Caba M.D. ; [facility]
[2017-07-08] MEDS ORDERED: D5NSS + 20MEQ KCL 1,000 ML IV SCH (20:00)
[2017-07-08] MEDS ORDERED: LORAZEPAM 2 MG/ML 1 ML VIAL ONE (23:56)
[2017-07-09] MEDS ORDERED: NURSING VERBAL MED ORDER ONE
[2017-07-09 00:26] VITALS: BP 131/82; PULSE 73
[2017-07-09] MEDS: LAVAGE SOLUTION 4000ML PR SCH ×2 (00:57→04:31)
[2017-07-09] MEDS: LEVOTHYROXINE 75 MCG TAB PO SCH (06:18)
[2017-07-09 07:05] LABS: BUN/CREATININE RATIO 19.3 (10-20); CALCIUM 8.1 mg/dl (8.5-10.1); CREATININE 0.94 mg/dl (0.60-1.40); MAGNESIUM 2.2 mg/dl (1.8-2.4); POTASSIUM 3.6 mmol/L (3.5-5.1)
[2017-07-09 08:00] VITALS: O2SAT 93
[2017-07-09] MEDS: ASPIRIN 81 MG ECTAB PO SCH (08:35)
[2017-07-09] MEDS: CEROVITE ADV FORMULA TAB PO SCH (08:35)
[2017-07-09 09:27] VITALS: BP 123/83; PULSE 63; TEMP 36.2; O2SAT 93
[2017-07-09 10:01] VITALS: BP 123/83; PULSE 63; TEMP 36.2; O2SAT 93
--- NOTE | 2017-07-09 10:22 | Progress Note ---
Progress Note Date of Service Jul 09, 2017. Progress Note time - 1015 S: delirium overnight requiring ativan this am he is awake, alert, following commands - although confused denies pain O: VSS no fever gen - nad mouth - MM dry neck - JVD present heart - RRR, s1, s2 lungs - CTA b/l abd - soft, NT, ND, BS+ ext - no edema A/P: sigmoid volvulus - s/p colonic decompression with rectal tube placement improvement in exam and radiographic appearance however, high recurrence risk (70%) to go to [facility] today for surgical evaluation labs this AM stable tele stable (paced) VSS ok to transfer [place] [facility] [place] fluid rate to 50cc/hr due to slightly worsening JVD although he still remains compensated otherwise Luis VERGARA MD
== END 2017-07-09 10:40 | disposition short-term general hospital (02) | DRG 389 ==
LOC: C.EDB 15:17 → C.MED 19:12 → ENRESERV 19:21
PROVIDERS: ADMIT Hospitalist; ATTEND Internal Medicine
PROC: 0D9E8ZX Drainage of Large Intestine, Via Natural or Artificial Opening Endoscopic, Diagnostic (ICD-10-PCS; principal; 2017-07-06 14:30)
PROC: 0D7N8DZ Dilation of Sigmoid Colon with Intraluminal Device, Via Natural or Artificial Opening Endoscopic (ICD-10-PCS; principal; 2017-07-06 14:30)
DX: K56.2 Volvulus (principal); I50.22 Chronic systolic (congestive) heart failure; I42.9 Cardiomyopathy, unspecified; E87.1 Hypo-osmolality and hyponatremia; F03.91 Unspecified dementia, unspecified severity, with behavioral disturbance; E87.6 Hypokalemia; K64.4 Residual hemorrhoidal skin tags; E03.9 Hypothyroidism, unspecified; I25.10 Atherosclerotic heart disease of native coronary artery without angina pectoris; M19.90 Unspecified osteoarthritis, unspecified site; H91.90 Unspecified hearing loss, unspecified ear; Z66 Do not resuscitate; Z86.79 Personal history of other diseases of the circulatory system; Z95.0 Presence of cardiac pacemaker; Z85.46 Personal history of malignant neoplasm of prostate; Z86.73 Personal history of transient ischemic attack (TIA), and cerebral infarction without residual deficits; Z87.891 Personal history of nicotine dependence; Z98.1 Arthrodesis status; Z79.01 Long term (current) use of anticoagulants; Z79.1 Long term (current) use of non-steroidal anti-inflammatories (NSAID); Z79.82 Long term (current) use of aspirin; Z79.899 Other long term (current) drug therapy